=== PATIENT | male | born 1950 | race Caucasian/White ===

== ENCOUNTER 2018-05-26 07:05 | Outpatient (CLI) | payer MEDICARE, BC, SELFPAY ==
[2018-05-26 07:36] LABS: Absolute Basophil Count 0.02 k/cumm (0.0-0.2); Absolute Eosinophil Count 0.11 k/cumm (0.0-0.7); Absolute Lymphocyte Count 1.01 k/cumm (1.2-3.4); Absolute Monocyte Count 0.45 k/cumm (0.11-0.7); Basophils % 0.6; Eosinophils % 3.1; HCT 40.5 % (40.0-50.0); HGB 13.7 g/dL (13.5-17.5); Lymphocytes % 28.1; Mean Corp. HGB Concentration 33.8 g/dL (32.0-36.0); Mean Corpuscular Hemoglobin 32.7 pg (27.0-33.0); Mean Corpuscular Volume 96.7 fL (80-95); Mean Platelet Volume 9.2 fL (8.0-11.0); Monocytes % 12.5; Neutrophils % 55.7; Platelet Count 180 x1000/uL (130-400); RBC 4.19 m/cumm (4.50-6.00); RBC Distribution Width 12.1 % (11.8-14.1); White Blood Cell Count 3.59 k/cumm (4.4-10.8)
[2018-05-26 08:18] LABS: Glucose 102 mg/dL (70-100)
[2018-05-28 03:32] LABS: Testosterone, Total 392 ng/dL (240-950)
== END 2018-05-26 07:25 ==
PROVIDERS: PCP General Practice; Referring Provider Psychiatry & Neurology Psychiatry; Visit Provider General Practice
DX: N52.9 Male erectile dysfunction, unspecified (principal); D64.9 Anemia, unspecified; Z79.899 Other long term (current) drug therapy
CPT/HCPCS: 36415; 82947; 84403; 85025

== ENCOUNTER 2018-06-26 08:57 | Outpatient (CLI) | payer MEDICARE, BC, SELFPAY ==
[2018-06-26 09:12] LABS: Absolute Basophil Count 0.02 k/cumm (0.0-0.2); Absolute Eosinophil Count 0.12 k/cumm (0.0-0.7); Absolute Lymphocyte Count 1.28 k/cumm (1.2-3.4); Absolute Monocyte Count 0.56 k/cumm (0.11-0.7); Absolute Neutrophil Count 2.45 k/cumm (1.2-6.7); Basophils % 0.5; Eosinophils % 2.7; HCT 41.6 % (40.0-50.0); HGB 14.7 g/dL (13.5-17.5); Lymphocytes % 28.9; Mean Corp. HGB Concentration 35.3 g/dL (32.0-36.0); Mean Corpuscular Hemoglobin 33.1 pg (27.0-33.0); Mean Corpuscular Volume 93.7 fL (80-95); Mean Platelet Volume 8.9 fL (8.0-11.0); Monocytes % 12.6; Neutrophils % 55.3; Platelet Count 189 x1000/uL (130-400); RBC 4.44 m/cumm (4.50-6.00); RBC Distribution Width 11.6 % (11.8-14.1); White Blood Cell Count 4.43 k/cumm (4.4-10.8)
== END 2018-06-26 09:17 ==
PROVIDERS: PCP General Practice; Visit Provider Psychiatry & Neurology Psychiatry
DX: D64.9 Anemia, unspecified (principal); Z79.899 Other long term (current) drug therapy
CPT/HCPCS: 36415; 85025

== ENCOUNTER 2018-08-10 12:19 | Outpatient (CLI) | payer MEDICARE, BC, SELFPAY ==
[2018-08-10 12:40] LABS: Absolute Basophil Count 0.03 k/cumm (0.0-0.2); Absolute Lymphocyte Count 1.24 k/cumm (1.2-3.4); Absolute Monocyte Count 0.43 k/cumm (0.11-0.7); Absolute Neutrophil Count 2.86 k/cumm (1.2-6.7); Basophils % 0.6; Eosinophils % 2.1; HGB 14.8 g/dL (13.5-17.5); Lymphocytes % 26.6; Mean Corp. HGB Concentration 35.2 g/dL (32.0-36.0); Mean Corpuscular Hemoglobin 32.8 pg (27.0-33.0); Mean Corpuscular Volume 93.1 fL (80-95); Mean Platelet Volume 9.1 fL (8.0-11.0); Monocytes % 9.2; Neutrophils % 61.5; Platelet Count 196 x1000/uL (130-400); RBC 4.51 m/cumm (4.50-6.00); RBC Distribution Width 11.7 % (11.8-14.1); White Blood Cell Count 4.66 k/cumm (4.4-10.8)
[2018-08-10 12:57] LABS: ALT 32 U/L (12-78); AST 26 U/L (15-37); Alkaline Phosphatase 82 U/L (46-116); Anion Gap 7.2 mmol/L (3-11); BUN 15 mg/dL (7-18); Bilirubin, Total 0.3 mg/dL (0.2-1.0); CO2 29.8 mmol/L (21.0-32.0); CREATININE 1.01 mg/dL (0.70-1.30); Calcium 9.1 mg/dL (8.5-10.1); Chloride 100 mmol/L (98-107); Glucose 103 mg/dL (70-100); Sodium 137 mmol/L (136-145); Total Protein 7.2 g/dL (6.4-8.2)
[2018-08-11 09:56] LABS: CEA 1.6 ng/ml
== END 2018-08-10 12:39 ==
PROVIDERS: PCP General Practice; Visit Provider Internal Medicine Hematology & Oncology
DX: Z85.038 Personal history of other malignant neoplasm of large intestine (principal)
CPT/HCPCS: 36415; 80053; 82378; 85025

== ENCOUNTER 2019-01-04 08:33 | Outpatient (CLI) | payer MEDICARE, BC, SELFPAY ==
[2019-01-04 08:54] LABS: Absolute Basophil Count 0.02 k/cumm (0.0-0.2); Absolute Lymphocyte Count 1.12 k/cumm (1.2-3.4); Absolute Monocyte Count 0.43 k/cumm (0.11-0.7); Basophils % 0.5; Eosinophils % 2.4; HCT 40.4 % (40.0-50.0); Lymphocytes % 26.9; Mean Corp. HGB Concentration 34.7 g/dL (32.0-36.0); Mean Corpuscular Hemoglobin 32.8 pg (27.0-33.0); Mean Corpuscular Volume 94.6 fL (80-95); Mean Platelet Volume 9.4 fL (8.0-11.0); Monocytes % 10.3; Neutrophils % 59.9; Platelet Count 203 x1000/uL (130-400); RBC 4.27 m/cumm (4.50-6.00); RBC Distribution Width 11.7 % (11.8-14.1); White Blood Cell Count 4.17 k/cumm (4.4-10.8)
== END 2019-01-04 08:53 ==
PROVIDERS: PCP General Practice; Visit Provider Psychiatry & Neurology Psychiatry
DX: F31.81 Bipolar II disorder (principal); Z79.899 Other long term (current) drug therapy
CPT/HCPCS: 36415; 85025

== ENCOUNTER 2019-02-17 07:08 | Outpatient (CLI) | payer MEDICARE, BC, SELFPAY ==
[2019-02-17 08:25] LABS: Glucose 101 mg/dL (70-100)
== END 2019-02-17 07:28 ==
PROVIDERS: PCP General Practice; Visit Provider General Practice
DX: R73.03 Prediabetes (principal)
CPT/HCPCS: 36415; 82947

== ENCOUNTER 2019-03-16 20:38 | Emergency (ER) | payer MEDICARE, BC, SELFPAY ==
[2019-03-16 20:46] VITALS: BP 177/78; PULSE 78; RESP 18; TEMP 36.8; O2SAT 98
--- NOTE | 2019-03-16 21:01 | ED.GENADUL_ITS ---
Discharge Plan Disposition Patient Disposition: HOME Condition: Stable Discharge Details Chief Complaint: RashLesion Clinical Impression: Tick bite Primary Care Provider: Carlos A Maurer ED Provider: Sylvester Ashton Home Meds and New Rx's Prescriptions: No Action Fish Oil 300 MG capsule 300 mg PO DAILY RF: 0 lamotrigine [Lamictal] 100 MG tablet 100 mg PO DAILY RF: 0 Discharge Instructions Instructions: Tick Bite (ED) Additional Instructions: if you develop redness that is spreading, a bulls eye appearing rash or severe pain or fevers see your primary care provider or return to the emergency department Medical Decision Making 68 yo male comes in with cc of tick bite. He states he removed a tick from lower back tonight that appears to have been there for at least 2-3 days. HAs mild erythema around it that is not warm, no bulls eye or systemic symptoms. Will tx with one time dose of doxy and advised f/u here or pcp if he has severe pain, spreading redness or fevers Differential Diagnosis tick bite, lyme disease HPI General Mode of arrival: ambulatory . Date/Time Provider Initiated Documentation: 03/16/19 20:42 . Limitations to Documentation: no limitations . Information obtained by: patient . History of Present Illness 68 year old M presents to the emergency department with the chief complaint of tick bite, described as moderate, Quality is described as aching, and is localized to the back. Patient reports no radiation. Patient started experiencing this hour(s) (1) and it has been constant. No relieving factors improve symptom(s), No exacerbating factors reported . Patient notes no other symptoms.. Related Data Home Medications Medication Instructions Recorded Confirmed Fish Oil 300 mg PO DAILY 02/15/16 03/16/19 lamotrigine [Lamictal] 100 mg PO DAILY 01/27/18 03/16/19 Allergies Allergy/AdvReac Type Severity Reaction Status Date / Time No Known Allergies Allergy Unverified 03/16/19 20:49 General Stated Complaint: RashLesion MAURA: 4 Review of Systems Review of Systems All systems reviewed & are unremarkable except as noted in HPI and below Constitutional Denies chills, Denies fever(s) and Denies weakness Cardiovascular Denies chest pain and Denies dyspnea Respiratory Denies cough and Denies dyspnea Gastrointestinal Denies abdominal pain, Denies nausea and Denies vomiting Musculoskeletal Denies joint swelling Neurologic Denies weakness Endocrine Denies heat intolerance PFSH Social History Smoking/Tobacco Use Status: Never Alcohol Intake: current Alcohol Intake frequency: holidays/special occasions only Alcohol type: beer Drug use: Never Do you feel safe at home: Yes Do you feel safe in your relationship?: Yes Exam Const General: no acute distress Orientation: alert HENMT Head: normal to inspection Ears: external ears normal General nose exam: external nose normal Mouth: moist mucous membranes Eyes General: appearance normal, both eyes and all related structures Neck Neck: normal visual inspection Resp Effort & Inspection: normal respiratory effort and able to speak in complete sentences Cardio Rate: regular rate Skin General skin exam: elasticity normal Neuro General: alert and oriented x3 Extrem General: normal to inspection Psych Mental Status: mental status grossly normal Course Vital Signs Temperature 36.8 C 03/16/19 20:46 Pulse 78 03/16/19 20:46 Respiratory Rate 18 03/16/19 20:46 Blood Pressure 177/78 H 03/16/19 20:46 Pulse Oximetry 98 03/16/19 20:46 Temperature 36.8 C 03/16/19 20:46 Temperature Source Skin 03/16/19 20:46 Pulse 78 03/16/19 20:46 Respiratory Rate 18 03/16/19 20:46 Respiratory Effort Non-Labored 03/16/19 20:47 Blood Pressure 177/78 H 03/16/19 20:46 Blood Pressure Position Sitting 03/16/19 20:46 Pulse Oximetry 98 03/16/19 20:46 Oxygen Delivery Method Room Air 03/16/19 20:46 Oxygen Flow Rate 0 03/16/19 20:46 Pain Level 4 03/16/19 20:46
[2019-03-16] MEDS: Doxycycline Hyclate 100 MG CAP 200 MG PO (21:06)
== END 2019-03-16 21:08 | disposition home or self-care (01) ==
LOC: ER 21:03
PROVIDERS: Emergency Provider Emergency Medicine; PCP General Practice
DX: S30.860A Insect bite (nonvenomous) of lower back and pelvis, initial encounter (principal); W57.XXXA Bitten or stung by nonvenomous insect and other nonvenomous arthropods, initial encounter
CPT/HCPCS: 99283

== ENCOUNTER 2019-06-17 07:09 | Outpatient (CLI) | payer MEDICARE, BC, SELFPAY ==
[2019-06-17 07:34] LABS: HCT 40.8 % (40.0-50.0); HGB 14.1 g/dL (13.5-17.5); Mean Corp. HGB Concentration 34.6 g/dL (32.0-36.0); Mean Corpuscular Hemoglobin 32.8 pg (27.0-33.0); Mean Corpuscular Volume 94.9 fL (80-95); Mean Platelet Volume 8.9 fL (8.0-11.0); Platelet Count 230 x1000/uL (130-400); RBC Distribution Width 11.6 % (11.8-14.1); White Blood Cell Count 3.66 k/cumm (4.4-10.8)
[2019-06-17 08:27] LABS: Glucose 106 mg/dL (70-100)
== END 2019-06-17 07:29 ==
PROVIDERS: PCP General Practice; Visit Provider General Practice
DX: D72.819 Decreased white blood cell count, unspecified (principal); R73.03 Prediabetes
CPT/HCPCS: 36415; 82947; 85027

== ENCOUNTER 2019-07-05 12:56 | Emergency (ER) | payer MEDICARE, BC, SELFPAY ==
[2019-07-05] VITALS (17 sets, daily range): BP systolic 144–175; BP diastolic 73–82; PULSE 66–84; RESP 9–17; TEMP 36.9; O2SAT 95–97
--- NOTE | 2019-07-05 13:17 | DI.RAD_ITS ---
EXAM: XR KNEE RT 3V AP,LAT,ELA INDICATION: Accidental fall with the impact. COMPARISON: No exams were available for comparison TECHNIQUE: 2D digital imaging was performed. FINDINGS: No acute fracture or dislocation is present. There is an enthesophyte at the superior aspect of the patella. Atherosclerosis. No radiopaque foreign bodies are seen in the soft tissues. IMPRESSION: No acute fracture or dislocation.
--- NOTE | 2019-07-05 13:20 | ED.GENADUL_ITS ---
Discharge Plan Disposition Patient Disposition: HOME Condition: Stable Discharge Details Chief Complaint: Trauma Clinical Impression: C4 cervical fracture Primary Care Provider: Carlos A Maurer ED Provider: Tate Barbosa Home Meds and New Rx's Prescriptions: No Action Fish Oil 300 MG capsule 300 mg PO DAILY RF: 0 lamotrigine [Lamictal] 100 MG tablet 300 mg PO HS RF: 0 penicillin V potassium 500 mg Tablet 500 mg PO RF: 0 Discharge Instructions Additional Instructions: 1. Drink plenty of fluids. 2. Continue all medications as prescribed. 3. Acetaminophen 1000mg every 4 hours (up to 5 time a day) and/or ibuprofen 600mg every 6 hours as needed for fever or pain. 4. Wear cervical collar until follow-up with Dr. Gurrola at [facility] in 10 to 14 days. 5. Minimize activity which will risk making her fracture unstable or slow healing. This includes: a. No heavy lifting b. No lifting arms overhead. c. No driving or other activities which require neck rotation. d. Careful walking to avoid accidental falls. Avoid uneven or slippery surfaces. Return to the Emergency Department (ED) if your condition worsens, does not improve as expected, or for ANY other concerns. Specifically, return if you have new or uncontrolled pain, worsening fever, difficulty breathing, vomiting, or are unable to drink fluids. Referrals: Callum Gurrola [ NON-RESEARCH [facility] STAFF PHYSICIAN] - Medical Decision Making 69-year-old gentleman who presents with head, neck, and right knee injuries associate with a fall from a standing truck. Mr. Yip describes accidentally falling from the truck bed with impact to his head and lateral right knee. He drove himself to the hospital for evaluation. On arrival, he had headache, and endorses worsening neck pain, and had lateral right knee pain. Clinical exam otherwise unremarkable. Knee x-ray negative. Head CT negative. Cervical spine CT diagnostic for isolated bilateral C4 lamina fractures with minimal displacement. Patient was changed from a cervical collar to [place] collar pending review of images and management with academic support specialist at [facility]. Discussed case with academic support specialist at [facility] (Dr. Callum Gurrola's office). Patient cleared for discharge home in a [place] collar with a plan for outpatient follow-up at [facility] in 10 to 14 days. Reviewed diagnostic findings and management strategy with karly figueroa and family. Patient discharged with a [place] collar and strict instructions to avoid activity which will increase likelihood of bony instability or retard healing. Given usual and customary return instructions at the time of discharge. Medical Records Medical records reviewed: Yes I reviewed the patient's medical records. Imaging Data Radiologic Study: Imaging: CT Scan (Head and cervical spine) My impression: No intracranial injury. Minimally displaced fractures of lamina bilaterally at C4. Images reviewed independently and contemporaneously by myself. Findings discussed with radiology. Radiologist's impression: Same Radiologic Study #2: Attestation: I personally reviewed and interpreted this imaging study as follows: Imaging: X-Ray (Right knee) My impression: No acute fracture or dislocation. Images reviewed independently and contemporaries by myself. Findings discussed with radiologist. Radiologist's impression: Same HPI 69-year-old gentleman with an unremarkable past medical history. Control himself here after falling from a semitruck with impact to his head and right knee. He denies LOC but notes that he was briefly altered and delayed and standing up. In route to the hospital he noted progressive neck pain. He also has pain to the lateral aspect of his right knee but otherwise had no difficulty with gait or weightbearing. He has a low-grade headache, neck pain more pronounced on his right side, and knee pain. He otherwise denies any other constitutional complaints including no chest pain, dyspnea, abdominal pain or other extremity injury. He has had no change in vision or hearing. He denies any focal extremity weakness. General Date/Time Provider Initiated Documentation: 07/05/19 13:17 . Related Data Home Medications Medication Instructions Recorded Confirmed Fish Oil 300 mg PO DAILY 02/15/16 07/05/19 lamotrigine [Lamictal] 300 mg PO HS 01/27/18 07/05/19 penicillin V potassium 500 mg PO 07/05/19 Allergies Allergy/AdvReac Type Severity Reaction Status Date / Time No Known Allergies Allergy Unverified 07/05/19 13:06 General Stated Complaint: Trauma MAURA: 3 Review of Systems All systems reviewed & are unremarkable except as noted in HPI and below PFSH Social History Smoking/Tobacco Use Status: Never Alcohol Intake: current Alcohol Intake frequency: holidays/special occasions only Alcohol type: beer Drug use: Never Do you feel safe at home: Yes Do you feel safe in your relationship?: Yes Exam Narrative Exam Narrative: Nursing note and vital signs have been reviewed and noted. GENERAL: alert, active, no acute distress, well -hydrated, well-nourished HEENT: normocephalic, PERRLA, EOMI, conjunctiva clear, external ears/canals normal, nasal mucosa normal; multiple superficial lacerations on the right vertex NECK: Midline tenderness C3-C5 with no ecchymosis, step-off, or soft tissue injury appreciated. Bilateral paraspinal tenderness. CARDIOVASCULAR: RRR, no murmurs, nl pulses, no edema PULMONARY: nl effort, no audible wheezing or stridor, nl breath sounds with no focal deficit. no chest wall tenderness ABDOMEN: soft, non-tender, non-distended, no mass, no organomegaly EXTREMITY: normal muscle tone, all extremities are normal except for the right knee which has a lateral abrasion. No laxity tenderness or pain with valgus and varus deformity. Negative anterior drawer normal neurovascular exam distally normal patella by ballottement negative straight leg raise. SKIN: no exanthem appreciated NEURO: gross motor exam normal, normal stance and gait PSYCH: alert and oriented, Course Vital Signs Vital signs: Vital Signs Temperature 98.4 F 07/05/19 13:01 Pulse 75 07/05/19 13:01 Respiratory Rate 16 07/05/19 13:01 Blood Pressure 175/76 H 07/05/19 13:01 Temperature 98.4 F 07/05/19 13:01 Temperature Source Temporal Artery Scan 07/05/19 13:01 Pulse 75 07/05/19 13:01 Respiratory Rate 16 07/05/19 13:01 Blood Pressure 175/76 H 07/05/19 13:01 Oxygen Delivery Method Room Air 07/05/19 13:01 Oxygen Flow Rate 0 07/05/19 13:01 Pain Level 10 07/05/19 13:01
--- NOTE | 2019-07-05 13:25 | DI.CT_ITS ---
EXAM: CT HEAD AND CERVICAL SPINE WO CLINICAL HISTORY: Accidental fall with injury to head/neck COMPARISON: No exams were available for comparison FINDINGS: CT BRAIN: There is artifact from the patient's dental amalgam. The ventricles and sulci are consistent with th e patient's age. No acute intracranial hemorrhage, midline shift or mass effect is identified. The ventricles are intact. The basilar cisterns are patent. There is mild mucosal thickening in the rig ht maxillary sinus. The remaining visualized paranasal sinuses are clear. No air-fluid levels are p resent. The mastoid air cells are well pneumatized. The calvarium is intact. CT CERVICAL SPINE: There is a fracture involving both the right and left laminae of the C4 vertebra. There is 1-2 mm of distraction of the fracture noted. The fracture does not involve the pedicle or the transverse proc esses. The vertebral body is intact. No other fractures or subluxations are seen. The odontoid is intact. The lateral masses are well aligned. Mild to moderate degenerative changes are present thro ughout the cervical spine. No significant central spinal canal stenosis is seen at this level. The prevertebral soft tissues ar e unremarkable. No spinal cord compression is noted. The lung apices are clear. IMPRESSION: 1. No acute intracranial process. 2. Minimally displaced fracture involving both the right and left laminae of C4. 3. The findings were discussed with the Emergency Department at 2:05 p.m. on 07/05/2019.
--- NOTE | 2019-07-05 14:17 | NUR.NOTE ---
ER MD removed the stiff neck and relplaced it with a [place] collar with assist of 2 nurses. pt is aware of consult via phone with [facility] . he has attempted to call his daughter Venessa . he does not want to call his at thhis time .Nursing Note:
== END 2019-07-05 15:45 | disposition home or self-care (01) ==
PROVIDERS: Emergency Provider Emergency Medicine; PCP General Practice
DX: S12.390A Other displaced fracture of fourth cervical vertebra, initial encounter for closed fracture (principal); R51 Headache; M25.562 Pain in left knee; V68.4XXA Person boarding or alighting a heavy transport vehicle injured in noncollision transport accident, initial encounter
CPT/HCPCS: 36415; 73562; 99284; L0172; 70450; 72125

== ENCOUNTER 2019-09-23 08:44 | Outpatient (CLI) | payer MEDICARE, BC, SELFPAY ==
[2019-09-23 09:15] LABS: Abs Immature Grans 0.01 k/cumm (0.0-0.09); Absolute Basophil Count 0.02 k/cumm (0.0-0.2); Absolute Eosinophil Count 0.16 k/cumm (0.0-0.7); Absolute Lymphocyte Count 1.38 k/cumm (1.2-3.4); Absolute Monocyte Count 0.58 k/cumm (0.11-0.7); Absolute Neutrophil Count 2.67 k/cumm (1.2-6.7); Basophils % 0.4; Eosinophils % 3.3; HCT 41.5 % (40.0-50.0); HGB 14.5 g/dL (13.5-17.5); Immature Grans % 0.2 %; Lymphocytes % 28.6; Mean Corp. HGB Concentration 34.9 g/dL (32.0-36.0); Mean Corpuscular Hemoglobin 32.4 pg (27.0-33.0); Mean Corpuscular Volume 92.6 fL (80-95); Mean Platelet Volume 9.2 fL (8.0-11.0); Neutrophils % 55.5; Platelet Count 237 x1000/uL (130-400); RBC 4.48 m/cumm (4.50-6.00); White Blood Cell Count 4.82 k/cumm (4.4-10.8)
[2019-09-24 15:31] LABS: ALT 28 U/L (16-63); AST 28 U/L (15-37); Albumin 4.1 g/dL (3.4-5.0); Alkaline Phosphatase 79 U/L (46-116); Anion Gap 7.9 mmol/L (3-11); BUN 17 mg/dL (7-18); Bilirubin, Total 0.5 mg/dL (0.2-1.0); CO2 28.1 mmol/L (21.0-32.0); CREATININE 1.06 mg/dL (0.70-1.30); Calcium 8.8 mg/dL (8.5-10.1); Chloride 103 mmol/L (98-107); Glucose 100 mg/dL (74-106); Potassium 4.4 mmol/L (3.5-5.1); Sodium 139 mmol/L (136-145); Total Protein 6.8 g/dL (6.4-8.2)
[2019-09-27 10:28] LABS: CEA 2.3 ng/mL (See Note)
== END 2019-09-23 09:04 ==
PROVIDERS: Internal Medicine Hematology & Oncology; PCP Family Medicine; Visit Provider Nurse Practitioner Family
DX: C18.7 Malignant neoplasm of sigmoid colon (principal)
CPT/HCPCS: 36415; 80053; 82378; 85025

== ENCOUNTER 2020-03-02 04:09 | Emergency (ER) | payer MEDICARE, BC, SELFPAY ==
[2020-03-02] VITALS (7 sets, daily range): BP systolic 115–156; BP diastolic 60–85; PULSE 66–99; RESP 12–17; TEMP 36.6; O2SAT 94–97
--- NOTE | 2020-03-02 04:00 | RT.EKG_ITS ---
APPROVED REPORT Exam: Resting ECG Patient Location: E HR:76 bpm ECG Measurements Heart Rate 76 AXIS OH 195 P 34 QRSd 90 QRS 32 QT 387 T 56 QTc 436 <Conclusion> Sinus rhythm...normal P axis, V-rate 60- 99 no acute ischemic findings
--- NOTE | 2020-03-02 04:19 | ED.GENADUL_ITS ---
Discharge Plan Disposition Patient Disposition: HOME Condition: Stable Discharge Details Chief Complaint: Chest Pain Clinical Impression: Chest pain, Vertigo Primary Care Provider: Warner Quinn ED Provider: Sylvester Ashton Home Meds and New Rx's Prescriptions: New meclizine 25 mg tablet 25 mg PO TID PRN (Reason: dizziness) Qty: 30 RF: 0 Continued lamotrigine [Lamictal] 100 MG tablet 300 mg PO HS RF: 0 Discharge Instructions Instructions: Vertigo (ED) Additional Instructions: follow up with your primary care provider within 1 week return to the emergency department if you feel more ill, have fevers, difficulty breathing Medical Decision Making 69 yo male with hx of depression on lamictal with no smoking or cardiac history comes in with ems after he states he woke up with burning in his chest and felt dizzy. Denies n/v, diaphoresis or radiation of the pain. HE was given asa with EMS and arrives stating he has no burning on my exam and is just tired. He denies fevers, cough, dyspnea and on exam is in no distress speaking in full sentences with clear lungs, no murmurs, no leg swelling and no jvd. Suspect gerd less likely nstemi. Heart score is 3, will obtain troponin. No tearing back pain and normal vascular exam so doubt dissection. wells is moderate given PE j ust as likely as other diagnoses so will obtain CTA and monitor labs and CTA unremarkable. Remains HD stable. He is sleeping on reassessment and when awoken states he feels tired and unsteady. When I get the patient up he has an unsteady gait and does have ataxia on finger to nose testing. I suspect he could have vertigo, given last known normal was when he went to bed at 10pm not a lytic candidate if this was a stroke, will obtain ct head and give meclizine and monitor pt feels better, ct negative for acute pathology. He is more steady on his feet. I did recommend admission given unclear etiology of his dizziness but he declines and requests d/c. He has capcaity to make his own decisions and understands risks of leaving including falling and less likely and disability but is willing to accept these risks. He hasa cane at home. Will d/c with meclizine and advised f/u with pcp and return precautions given Differential Diagnosis Differential Diagnosis: nstemi, gerd, PE Medical Records Medical records reviewed: Yes I reviewed the patient's medical records. Imaging Data Radiologic Study: Attestation: I personally reviewed and interpreted this imaging study as follows: Imaging: CT Scan Radiologist's impression: no acute findings on CT of the chest Radiologic Study #2: Attestation: I personally reviewed and interpreted this imaging study as follows: Imaging: CT Scan Radiologist's impression: IMPRESSION: 1. No acute intracranial findings. No changes compared to 07/05/2019 Lab Data Lab results reviewed: Yes I reviewed the patient's lab results. ECG Data Attestation: I personally reviewed and interpreted this ECG (s) as follows: Prior ECG tracings: not available for review Interpretation: sinus rhythm, rate of 76, pr 195, no acute ischemic findiings HPI General Mode of arrival: EMS . Date/Time Provider Initiated Documentation: 03/02/20 04:09 . Limitations to Documentation: no limitations . Information obtained by: patient . History of Present Illness 69 year old M presents to the emergency department with the chief complaint of dizziness, described as moderate, Patient started experiencing this hour(s) (3) and it has been intermittent. No relieving factors improve symptom(s), No exacerbating factors reported . Patient did receive the following treatments prior to arrival, none Related Data Home Medications Medication Instructions Recorded Confirmed lamotrigine [Lamictal] 300 mg PO HS 01/27/18 03/02/20 meclizine 25 mg PO TID PRN #30 tab 03/02/20 Previous Rx's Medication Instructions Recorded meclizine 25 mg PO TID PRN #30 tab 03/02/20 Allergies Allergy/AdvReac Type Severity Reaction Status Date / Time No Known Allergies Allergy Unverified 07/05/19 13:06 General Stated Complaint: Chest Pain MAURA: 2 Review of Systems All systems reviewed & are unremarkable except as noted in HPI and below Constitutional Constitutional: Denies chills, Denies fever(s) and Denies weakness Eyes Eyes: Denies loss of vision ENT Ears, Nose, Mouth, and Throat: Denies change in voice Cardiovascular Cardiovascular: Denies dyspnea Respiratory Respiratory: Denies cough and Denies dyspnea Gastrointestinal Gastrointestinal: Denies abdominal pain, Denies nausea and Denies vomiting Genitourinary Genitourinary: Denies dysuria Musculoskeletal Musculoskeletal: Denies joint swelling Integumentary/Breasts Skin/Breast: Denies rash Neurologic Neurologic: Denies loss of vision and Denies weakness [facility] Medical History (Updated 03/02/20 @ 06:02 by Sylvester Ashton MD) Colon cancer (Chronic) Social History Smoking/Tobacco Use Status: Never Alcohol Intake: current Alcohol Intake frequency: holidays/special occasions only Alcohol type: beer Drug use: Never Substance use type: does not use Do you feel safe at home: Yes Do you feel safe in your relationship?: Yes Exam Const General: no acute distress Orientation: alert HENMT Head: normal to inspection Ears: external ears normal General nose exam: external nose normal Mouth: moist mucous membranes Eyes General: appearance normal, both eyes and all related structures Neck Neck: normal visual inspection Resp Effort & Inspection: normal respiratory effort and able to speak in complete sentences Cardio Rate: regular rate GI Palpation: soft Skin General skin exam: no rashes or lesions noted Neuro General: patient alert and patient oriented x3 Extrem General: normal to inspection Psych Mental Status: mental status grossly normal Course Vital Signs Vital signs: Vital Signs Temperature 36.6 C 03/02/20 04:11 Pulse 99 H 03/02/20 04:11 Respiratory Rate 16 03/02/20 04:11 Blood Pressure 156/85 H 03/02/20 04:11 Pulse Oximetry 94 L 03/02/20 04:11 Temperature 36.6 C 03/02/20 04:11 Temperature Source Temporal Artery Scan 03/02/20 04:11 Pulse 99 H 03/02/20 04:11 Respiratory Rate 16 03/02/20 04:11 Blood Pressure 156/85 H 03/02/20 04:11 Blood Pressure Position Supine 03/02/20 04:11 Pulse Oximetry 94 L 03/02/20 04:11 Oxygen Delivery Method Room Air 03/02/20 04:11 Oxygen Flow Rate 0 03/02/20 04:11
[2020-03-02 04:23] LABS: Abs Immature Grans 0.01 k/cumm (0.0-0.09); Absolute Basophil Count 0.02 k/cumm (0.0-0.2); Absolute Eosinophil Count 0.17 k/cumm (0.0-0.7); Absolute Monocyte Count 0.62 k/cumm (0.11-0.7); Absolute Neutrophil Count 2.26 k/cumm (1.2-6.7); Basophils % 0.4; Eosinophils % 3.6; HCT 40.8 % (40.0-50.0); HGB 14.1 g/dL (13.5-17.5); Immature Grans % 0.2 %; Lymphocytes % 35.6; Mean Corp. HGB Concentration 34.6 g/dL (32.0-36.0); Mean Corpuscular Hemoglobin 32.5 pg (27.0-33.0); Mean Platelet Volume 9.3 fL (8.0-11.0); Neutrophils % 47.2; Platelet Count 225 x1000/uL (130-400); RBC 4.34 m/cumm (4.50-6.00); RBC Distribution Width 11.8 % (11.8-14.1); White Blood Cell Count 4.78 k/cumm (4.4-10.8)
[2020-03-02 04:37] LABS: PTT Activated 20.7 sec (21.0-31.4); Prothrombin Time 9.8 sec (9.3-11.0)
[2020-03-02 04:42] LABS: ALT 35 U/L (16-63); AST 34 U/L (15-37); Albumin 3.6 g/dL (3.4-5.0); Alkaline Phosphatase 91 U/L (46-116); Anion Gap 8.4 mmol/L (3-11); BUN 17 mg/dL (7-18); Bilirubin, Total 0.2 mg/dL (0.2-1.0); CO2 29.6 mmol/L (21.0-32.0); CREATININE 1.17 mg/dL (0.70-1.30); Calcium 8.9 mg/dL (8.5-10.1); Chloride 101 mmol/L (98-107); Glucose 163 mg/dL (74-106); Potassium 3.8 mmol/L (3.5-5.1); Sodium 139 mmol/L (136-145)
--- NOTE | 2020-03-02 04:45 | DI.CT_ITS ---
EXAM: CT CHEST PE CTA CLINICAL HISTORY: chest pain. TECHNIQUE: Imaging Protocol: Axial CT angiography was performed with multi-slice acquisition and mu lti-planar and/or 3D reconstructions. CONTRAST MATERIAL: Intravenous: Omnipaque 350 Contrast volume:70 cc COMPARISON: No exams were available for comparison FINDINGS: There is no evidence of pulmonary emboli or aortic dissection. No pleural or pericardial effusions a re seen. There is no evidence of mass or adenopathy. Degenerative changes are seen in the spine. C oronary artery calcifications are seen. The heart is mildly enlarged. There the aorta is mildly tor tuous and shows mild calcification but is normal in diameter. Dependent changes are seen in the lung s. There is mild atelectasis at both lung bases. The visualized portions of the upper abdomen are u nremarkable. IMPRESSION: No evidence of pulmonary embolism or other acute abnormality. RADIATION DOSE DELIVERED: Total DLP DATA REPOSITORY: All CT scans at this facility are submitted to the National Radiology Data Registry (NRDR) Dose Index Registry (DIR) with the [employer] (A[employer]). RADIATION OPTIMIZATION: All CT scans at this facility use at least one of these dose optimization te chniques: automated exposure control; mA and/or kV adjustment per patient size (includes targeted exa ms where dose is matched to clinical indication); or iterative reconstruction.
[2020-03-02 04:48] LABS: Lipase 74 U/L (73-393)
[2020-03-02 04:53] LABS: Troponin I < 0.05 ng/mL (<0.06)
[2020-03-02] MEDS: Normal Saline Flush 10 ML SYR IVP (05:04)
[2020-03-02] MEDS: Omnipaque 350 MG/ML 100 ML BTL IJ (05:06)
[2020-03-02] MEDS: Normal Saline 20 ML VIAL IV ×2 (05:06→05:07)
--- NOTE | 2020-03-02 05:11 | DI.VRAD_ITS ---
PROCEDURE INFORMATION: Exam: CT Angiography Chest With Contrast Exam date and time: 03/02/2020 4:20 AM Age: 69 years old Clinical indication: Chest pain TECHNIQUE: Imaging protocol: Computed tomographic angiography of the chest with intravenous contrast. 3D rendering: MIP and/or 3D reconstructed images were created by the technologist. Radiation optimization: All CT scans at this facility use at least one of these dose optimization techniques: automated exposure control; mA and/or kV adjustment per patient size (includes targeted exams where dose is matched to clinical indication); or iterative reconstruction. Contrast material: [id number]`; Contrast volume: 70 ml; Contrast route: INTRAVENOUS (IV); COMPARISON: No relevant prior studies available. FINDINGS: Pulmonary arteries: No evidence of pulmonary embolism. Aorta: Normal caliber thoracic aorta without dissection or aneurysm. Lungs: No alveolar infiltrate. Bilateral lower lobe linear parenchymal scarring or subsegmental collapse / atelectasis. Pleural space: No pleural fluid collection. No pneumothorax. Heart: No right ventricular strain. No pericardial effusion. Lymph nodes: Unremarkable. No enlarged lymph nodes. Bones/joints: Spinal degenerative changes. Soft tissues: Unremarkable. IMPRESSION: 1. No evidence of pulmonary embolism. 2. No alveolar infiltrate. 3. Bilateral lower lobe linear parenchymal scarring or subsegmental collapse / atelectasis. 4. Normal caliber thoracic aorta without dissection or aneurysm. Dictated and Authenticated by: Lencho Weeks MD. Ordering:NASIR Phan MD
--- NOTE | 2020-03-02 05:34 | DI.CT_ITS ---
EXAM: CT HEAD WO CLINICAL HISTORY: dizziness. TECHNIQUE: Imaging Protocol: Axial computed tomography images with coronal and sagittal reformatted images were created and reviewed COMPARISON: CT CT HEAD CERVICAL SPINE WO from 07/05/[address] CHEST PE CTA from 03/02/2020 FINDINGS: There is contrast seen within the vascular structures related to previous CT of the chest. Ventricles and Extra axial spaces: Normal in size and morphology for the patient's age. Hemorrhage: None. Cerebral parenchyma: Mild white matter changes of small vessel disease. Midline shift: None. Brainstem/Cerebellum: Normal. Calvarium: Normal. Visualized Paranasal sinuses/Mastoids: Clear. Soft Tissues: Unremarkable. IMPRESSION: No acute intracranial process. RADIATION DOSE DELIVERED: Total DLP DATA REPOSITORY: All CT scans at this facility are submitted to the National Radiology Data Registry (NRDR) Dose Index Registry (DIR) with the [employer] (ACR). RADIATION OPTIMIZATION: All CT scans at this facility use at least one of these dose optimization te chniques: automated exposure control; mA and/or kV adjustment per patient size (includes targeted exa ms where dose is matched to clinical indication); or iterative reconstruction.
[2020-03-02] MEDS: Meclizine 25 MG TAB PO (05:50)
--- NOTE | 2020-03-02 05:54 | DI.VRAD_ITS ---
PROCEDURE INFORMATION: Exam: CT Head Without Contrast Exam date and time: 03/02/2020 5:23 AM Age: 69 years old Clinical indication: Dizziness TECHNIQUE: Imaging protocol: Computed tomography of the head without contrast. Radiation optimization: All CT scans at this facility use at least one of these dose optimization techniques: automated exposure control; mA and/or kV adjustment per patient size (includes targeted exams where dose is matched to clinical indication); or iterative reconstruction. Other technique: STROKE PROTOCOL was implemented. COMPARISON: CT HEAD CERVICAL SPINE WO 07/05/2019 1:32 PM FINDINGS: Brain: A few scattered small areas of decreased density in the periventricular white matter which are likely secondary to chronic ischemia from microvascular change. No acute intracranial hemorrhage. Diffuse cerebral atrophy. Ventricles: Ventricular prominence in this patient with diffuse cerebral atrophy. Bones/joints: Unremarkable. No acute fracture. Sinuses: No significant disease of the paranasal sinuses. Mastoid air cells: No mastoiditis. Vasculature: Arterial calcification. Circulating intravascular contrast in this patient with recent CTA chest performed earlier on 03/02/2020. Soft tissues: Unremarkable. IMPRESSION: 1. No acute intracranial findings. No changes compared to 07/05/2019. 2. Circulating intravascular contrast in this patient with recent CTA chest performed earlier on 03/02/2020. 3. ASPECTS (Cally Stroke Program Early CT Score) is 10. Dictated and Authenticated by: Lencho Weeks MD. Ordering:NASIR Phan MD
== END 2020-03-02 06:20 | disposition home or self-care (01) ==
LOC: ER 06:10
PROVIDERS: Emergency Provider Emergency Medicine; PCP Nurse Practitioner
DX: R07.89 Other chest pain (principal); R42 Dizziness and giddiness
CPT/HCPCS: 36415; 71275; 80053; 83690; 93005; 99285; 70450; 84484; 85025; 85610; 85730; 93010; J3490

== ENCOUNTER 2021-07-23 01:03 | Outpatient (CLI) | payer MEDICARE, BC, SELFPAY ==
--- OUTSIDE RECORDS SUMMARY | 2021-07-23 01:05 | XMS_ITS | Encounter Summary ---
:1950 Author Care Team Providers Name Role Phone Carlos A Maurer Primary Care Provider [phone] [facility] Medical Records Primary Care Provider [phone] Reason for Visit None recorded. Assessment and Plan 1. Obstructive sleep apnea syndr ome SHERINE with an AHI of 15.6/hr. He had been using CPAP 8-14 cm until he learned of the recall about two months ago. He was doing well with it prior to stopping. Since discontinuing his sleep is a little more fragmented/restless. He does not want to use it because he has had colon cancer and is anxious about the risk of cancer with recall. He is eligible for a new CPAP so I have ordered one to day. He is made aware he will need to me et insurance compliance requirements again and I reviewed those with him. He is encouraged to keep up with the rou nhung maintenance of the machine and to clean and replace parts as indicated. He was made aware of the recall and advi sed to register his machine with [employer]. I explained the exact risks of continuing to use the machine are unknown at this time and the decision to continue is up to him. He is reminded there are potent ial risks of not using CPAP as well. He will not use until he gets a new CPAP. I will see him back in three months. He is asked to call the clinic for any sleep related questions or concerns. I provided greater than 30 minutes in e care of this patient, more than half the time was spent in [id number] counseling. ? CPAP machine Discussion Note: None recorded.Patient educational handouts: No information available. Plan of Care Reminders Provider Appointments Office 08/28/2021 Siddharth Saenz, 8:00AM JINGLE WRITER Lab None ? ? recorded. Referral None ? ? recorded. Procedures None ? ? recorded. Surgeries None ? ? recorded. Imaging None ? ? recorded. Medications Name Start Date ? ? Lamictal XR 300 mg tablet,extended release ? Take 1 tablet every day by oral route at bedtime. Medications Administered None recorded. Vitals Height Weight BMI Blood Pressure 5 ft 8 in 168.5 lbs 25.6 kg/m2 139/80 mm[Hg] Results Lab Results None recorded. Allergies Code Code System Name Reaction Severity Onset NKDA ? ? ? Problems Name Status Onset Date Source ? Malignant Tumor of Colon Active 01/01/2019 ? Vitamin D Deficiency Active 01/01/2019 ? Neutropenia Active 01/01/2019 ? Chronic Anxiety Active 01/01/2019 ? Depressive Disorder Active 01/01/2019 ? Hypertensive Disorder Active 01/01/2019 ? History of Male Erectile Disorder Active 01/01/2019 ? Neurocognitive Disorder Active 01/01/2019 ? Hypersomnia Active ? History Obstructive Sleep Apnea Syndrome Active ? History Periodic Limb Movement Disorder Active ? History Restless Legs Active ? History Joint Pain Active ? History Drowsy Active ? History Nervous System Symptoms Active ? History Snoring Active ? History Procedures Date Name Performed by ? 03/25/2003 Colectomy Information not Notes: Partial; subsequent chemother apy--11/2002-10/2003[place] [place] Vaccine List None recorded. Social History Tobacco Smoking Status Never Smoker What is your level of alcohol None consumption? Live alone or with others? alone Are you currently employed? Y Do you have any pets? N Are you blind or do you have Y difficulty seeing? Are you deaf or do you have serious N difficulty hearing? What was the date of your most 01/05/2019 recent tobacco screening? Hard of hearing or deaf in one or Y Note s: supposed to wear both ears? hearing aids What is your level of caffeine Notes: 3-4 cups coffee daily consumption? Functional Status Are you blind or do you Yes have difficulty seeing?? Past Encounters 05/17/2021 Obstructive Sleep Apnea Syndrome Zulay Saenz JINGLE WRITER: [address] [place] [phone], Ph. History of Present Illness Note: <p>Christopher Yip comes in for SHERINE follow-up.</p><p>
</p><p>Christopher was last seen by me on 01/05/19. PSG 11/12/15 (BMI 26.45) AHI 15.6/hr, 02 avtar 82%. PLMi 32. 1/hr, PLMai 2.1/hr. Titration 05/11/16 (BMI 26.61), PLMi 57/hr, PLMai 3.2/hr. CPAP 10-14 cm recommended but he did not tolerate the increased pressures. At his last visit he was using CPAP 8-14 cm with good compliance and reduction in AHI.</p><p>
</p><p>Christopher tells me he was using his CPAP regularly until he learned about the recall two months ago. When he was using CPA Phe had a very dry mouth despite humidity at highest setting. He uses a full face mask and tolerates this well. He has not been using it since the end of February. Since stopping CPAP he has not noticed any significant worsening of his sleep quality. He is not sure if he is snoring. </p><p>He gets to bed between 8 pm- 12 am depending on if he falls asleep on the couch. He wakes up 1-2/nightand gets back to sleep easily. He gets up between 3-5 am to start his days. He is napping only rarely. He says he generally feels well rested. He denies night sweats but has rare nocturnal heartburn and morning headaches. The CPAP air pressure feels fine.</p><p>
</p><p>ESS today 04/17</p><p>
</p><p>COMPLIANCE DATA REVIEWED WITH PATIENT:</p>{{02/19/21-03/20/21# DATES}}, Used {{27# 25 30}}/30 days, average use {{6# 5 6}} hours {{11# number}} minutes a night, mean pressure {{8.8# 8 9}}cm, 90 th percentile pressure {{10.6# 9 10}}cm, time in large air leak {{1# 5 10}} minute, AHI {{3.9# 1 2}}/hour.<p></p><p& gt;</p>Review of Systems: ROS as noted in the HPI Review of Systems None recorded. Physical Exam ? Notes: General: A&O, well groomed { {over weight obese morbidly obese normal weight * thin}}.

HE AD: normocephalic & atraumatic.

EYES: non icteric.

LUNGS: CT A all cervantes. Good air movement.

CARDIO: RRR without murmur, gallop o r thrill.

NEURO: A&O. Normal gait.

PSYCH: Normal m ood and affect.

CUTANEOUS: no overt lesions or rashes
--- OUTSIDE RECORDS SUMMARY | 2021-07-23 01:05 | XMS_ITS ---
:1950 Author Care Team Providers Name Role Phone GAGANDEEP XOCHITL Primary Care Provider [phone] [facility] MEDICAL RECORDS Primary Care Provider [phone] Allergies Code Code System Name Reaction Severity Status Onset NKDA ? Medications Name Status Start Date Stop Date ? ? Lamictal XR 300 mg tablet,extended release Active ? Not available Take 1 tablet every day by oral route at bedtime. Problems Name Status Onset Date Source ? [...] Colectomy Information not Notes: Partial; [place] [place] Lab Results None recorded. Past Encounters 05/17/2021 Obstructive Sleep Apnea Syndrome Zulay Saenz STRINGED INSTRUMENT TUNER: [address] [place] [phone], Ph. Social History Tobacco Smoking Status Never Smoker Vaccine List None recorded. Plan of Care Reminders Provider Appointments None ? ? recorded. Lab None ? ? recorded. Referral None ? ? recorded. Procedures None ? ? recorded. Surgeries None ? ? recorded. Imaging None ? ? recorded. Vitals 05/17/2021 08:00AM Office 30 Height Weight BMI Blood Pressure 172.72 cm 76.43 kg 25.6 kg/m2 139/80 mm[Hg] 01/05/2019 10:45AM Office 30 Height Weight BMI Blood Pressure 172.72 cm 78.93 kg 26.5 kg/m2 140/82 mm[Hg] 08/07/2017 Height Weight Blood Pressure 172.72 cm 80.29 kg 128/74 mm[Hg] 09/03/2016 Height Weight Blood Pressure 172.72 cm 80.29 kg 117/72 mm[Hg] 07/09/2016 Height Weight Blood Pressure 172.72 cm 80.46 kg 118/78 mm[Hg] 05/28/2016 Height Weight Blood Pressure 172.72 cm 83.09 kg 124/68 mm[Hg] 12/12/2015 Height Weight Blood Pressure 172.72 cm 79.38 kg 136/80 mm[Hg] 10/31/2015 Height Weight Blood Pressure 172.72 cm 79.12 kg 120/70 mm[Hg]
--- NOTE | 2021-07-23 08:00 | ETT_ITS ---
APPROVED REPORT Exam: Exercise Treadmill Patient Location: Out-Patient Room/Bed: Stress Nurse: Caro Mota RN Ordering Provider:BILL SAINZ, Contact Number: [phone] BMI: 25.38 Baseline Rhythm: First Degree AV Block, Sinus Rhythm Indications: CHEST PAIN Medical History Medical History: Anxiety, Depression, Bipolar disorder, HTN, SHERINE, Vertigo Cardiac Medications: None Allergies: No known drug allergies Cardiac Risk Factors: FHX of CAD, HTN Previous Cardiac Procedures: None Pretest Chest Pain Characteristics: No chest pain Exercise History: Physically active Physical Disabilities: None Lung Sounds: Clear to auscultation Heart Sounds: Regular Stress Test Details Test: Exercise stress testing was performed using a Georges protocol. Rest Stress HR Resting HR Supine: 59 bpm Max Heart Rate (APMHR): 147 bpm Resting HR Standin bpm Target HR (85% APMHR): 124 bpm Max HR Achieved: 154 bpm % of APMHR: 104 Recovery HR: 74 bpm HR response to stress: Normal HR response to stress BP Resting BP Supine: 150/78 mmHg Resting BP Standin/76 mmHg Max BP: 174/80 mmHg Recovery BP: 146/78 mmHg BP response to stress: Normal blood pressure response to stress. ECG Resting ECst degree AV block, Sinus Bradycardia Ectopy: None Stress ECG: Sinus Tachycardia ST Change: Horizontal, Upsloping ST depression Lead(s): II, III, aVF Stage: [address] Deviation: 1.0 mm Arrhythmia: None Recovery ECG: Sinus Bradycardia, Sinus Rhythm Recovery ST Change: No significant ST segment changes noted Recovery Arrhythmia: rare PVC Clinical Reason for Termination: Fatigue Stress Symptoms: General Fatigue Exercise duration: 12 min44 sec Highest Stage Reached: Stage 5: 5.0 mph at 18% grade. Exercise capacity: 13.97 METs [place]on Treadmill Score: 11 Rate Pressure Product: [id number] Stress ECG Conclusion 1. Resting electrocardiogram showed first-degree AV block, voltage for left ventricular hypertrophy 2. Patient exercised on the Georges protocol and completed a workload of 13.97 METS, limited by fatigue 3. Normal heart rate and blood pressure response to exercise. Patient achieved greater than 100% of predicted heart rate for age 4. Electrocardiographically the test was negative for myocardial ischemia 5. Rare PVCs were seen [place] Treadmill Score is 11 which is Low risk. Stress Test Summary STAGE Time (mins) Speed (mph) Grade (%) HR BP SYMPTOMS METS Supine 59 150/78 Standing 60 152/76 1 3 1.7 10 118 154/80 4.6 2 6 2.5 12 122 162/86 7 3 9 3.4 14 130 166/88 10.2 4 12 4.2 16 140 SpO2 96% 12.9 1 min recovery 117 172/86 3 min recovery 73 174/80 6 min recovery 74 146/78
== END 2021-07-23 01:23 ==
DX: R07.9 Chest pain, unspecified (principal); Z82.49 Family history of ischemic heart disease and other diseases of the circulatory system; I10 Essential (primary) hypertension; I44.0 Atrioventricular block, first degree
CPT/HCPCS: 93016; 93018; 93017

== ENCOUNTER 2021-11-01 01:42 | Outpatient (CLI) | payer MEDICARE, BC, SELFPAY ==
--- NOTE | 2021-11-01 08:10 | DI.CT_ITS ---
Exam(s) CT SACRUM AND COCCYX WO EXAM: CT SACRUM AND COCCYX WO CLINICAL HISTORY: f/u acute transverse Sacral fracture,s32.10xa,h/o fall, continued pain TECHNIQUE: COMPARISON: CT CT CHEST PE CTA from 03/02/2020 DX Sacrum/ Coccyx from 10/27/2021 FINDINGS: CT examination of the pelvis was performed utilizing multi slice acquisition and multiplanar reconstr uction. Urinary bladder is markedly distended and mildly thick-walled and there is an apparent bladder divert iculum on the left. Findings are suggestive chronic bladder outlet obstruction. No gross pelvic mass or adenopathy. 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 There is a transverse fracture through this 3rd sacral segment which involves both anterior and poste rior elements. This is minimally displaced. No additional fracture seen involving the spine or pelv is. IMPRESSION: Third sacral segment fracture involving anterior and posterior elements, slight displacement. Additi onal findings as described above but no other evidence of acute fracture. RADIATION DOSE DELIVERED: 319.61mGy.cm Total DLP !Error CTDIvol RADIATION OPTIMIZATION: All CT scans at this facility use at least one of these dose optimization te chniques: automated exposure control; mA and/or kV adjustment per patient size (includes targeted exa ms where dose is matched to clinical indication); or iterative reconstruction.
== END 2021-11-01 02:02 ==
PROVIDERS: Visit Provider Nurse Practitioner Family
DX: S32.10XA Unspecified fracture of sacrum, initial encounter for closed fracture (principal); X58.XXXA Exposure to other specified factors, initial encounter
CPT/HCPCS: 72192

== ENCOUNTER 2022-06-27 03:06 | Outpatient (CLI) | payer MEDICARE, BC, SELFPAY ==
[2022-06-27 07:18] LABS: Abs Immature Grans 0.01 10^3/uL (0.0-0.06); Absolute Basophil Count 0.05 10^3/uL (0.0-0.2); Absolute Eosinophil Count 0.18 10^3/uL (0.0-0.7); Absolute Lymphocyte Count 1.36 10^3/uL (1.2-3.4); Absolute Monocyte Count 0.77 10^3/uL (0.1-0.8); Absolute Neutrophil Count 2.23 10^3/uL (1.2-6.7); Basophils % 1.1; Eosinophils % 3.9; HCT 41.5 % (40.0-50.0); HGB 14.1 g/dL (13.5-17.5); Immature Grans % 0.2; Lymphocytes % 29.6; MCH 32.1 pg (27.0-33.0); MCV 95 fL (80-95); MPV 9.1 fL (8.0-11.0); Monocytes % 16.7; Neutrophils % 48.5; Platelet Count 198 10^3/uL (130-400); RBC 4.39 10^6/uL (4.36-5.78); RDW 11.7 % (11.8-14.1); RDW-SD 40.4 fL
[2022-06-27 07:53] LABS: ALT 26 U/L (16-63); AST 27 U/L (15-37); Albumin 3.7 g/dL (3.4-5.0); Alkaline Phosphatase 94 U/L (46-116); Anion Gap 7.7 mmol/L (3-11); BUN 20 mg/dL (7-18); Bilirubin, Total 0.5 mg/dL (0.2-1.0); CO2 28.3 mmol/L (21.0-32.0); CREATININE 1.1 mg/dL (0.70-1.30); Calcium 8.8 mg/dL (8.5-10.1); Calculated LDL 115 mg/dL (<100); Chloride 105 mmol/L (98-107); Cholesterol 201 mg/dL (<200); Estimated GFR 70.44 (mL/min/1.73m2); Glucose 109 mg/dL (74-106); HDL Cholesterol 75 mg/dL (40-60); Potassium 4.2 mmol/L (3.5-5.1); Sodium 141 mmol/L (136-145); Triglyceride 59 mg/dL (<150)
== END 2022-06-27 03:07 | disposition home or self-care (01) ==
LOC: LBO 03:06
PROVIDERS: PCP Nurse Practitioner Family; Visit Provider Family Medicine
DX: F31.9 Bipolar disorder, unspecified (principal); Z00.00 Encounter for general adult medical examination without abnormal findings; E78.5 Hyperlipidemia, unspecified
CPT/HCPCS: 36415; 80053; 80061; 85025

== ENCOUNTER 2022-09-13 07:58 | Outpatient (CLI) | payer MEDICARE, BC, SELFPAY ==
--- NOTE | 2022-09-13 07:45 | RT.EKG_ITS ---
APPROVED REPORT Exam: Resting ECG Reason for Exam: palpitations Patient Location: O HR:61 bpm ECG Measurements Heart Rate 61 AXIS NE 202 P 45 QRSd 94 QRS 37 QT 426 T 64 QTc 429 Conclusion Sinus rhythm...normal P axis, V-rate 50- 99 Normal Electrocardiogram
== END 2022-09-13 07:59 | disposition home or self-care (01) ==
LOC: DI.CM 07:59
PROVIDERS: PCP Nurse Practitioner Family; Visit Provider Nurse Practitioner Family
DX: R00.2 Palpitations (principal)
CPT/HCPCS: 93010

== ENCOUNTER 2022-10-08 12:05 | Outpatient (CLI) | payer MEDICARE, BC, SELFPAY ==
--- NOTE | 2022-10-08 12:00 | RT.EKG_ITS ---
APPROVED REPORT Exam: Resting ECG Reason for Exam: Bradycardia Patient Location: O HR:43 bpm ECG Measurements Heart Rate 43 AXIS TN 196 P 17 QRSd 100 QRS 4 QT 526 T -67 QTc 445 Conclusion Sinus bradycardia...rate< 50 Abnormal R-wave progression, early transition...QRS area>0 in V2 Inferior infarct, age indeterminate...Q>35mS, T neg, II III aVF Abnrm T, consider ischemia, anterolateral lds...T <-0.20mV, I aVL V2-V6
== END 2022-10-08 12:06 | disposition home or self-care (01) ==
LOC: DI.CM 12:06
PROVIDERS: PCP Nurse Practitioner Family; Visit Provider Nurse Practitioner Family
DX: R00.1 Bradycardia, unspecified (principal); R94.31 Abnormal electrocardiogram [ECG] [EKG]; I25.2 Old myocardial infarction
CPT/HCPCS: 93010

== ENCOUNTER 2022-10-08 12:43 | Emergency (ER) | payer MEDICARE, BC, SELFPAY ==
[2022-10-08] VITALS (27 sets, daily range): BP systolic 124–171; BP diastolic 69–81; PULSE 34–44; RESP 11–22; TEMP 36.7; O2SAT 95–99
--- NOTE | 2022-10-08 12:30 | RT.EKG_ITS ---
APPROVED REPORT Exam: Resting ECG Reason for Exam: sophia Patient Location: E HR:41 bpm ECG Measurements Heart Rate 41 AXIS ID 205 P -29 QRSd 100 QRS -7 QT 565 T -60 QTc 464 Conclusion Sinus bradycardia...rate< 60 Inferior infarct, age indeterminate...Q>35mS, T neg, II III aVF Nonspecific T abnormalities, lateral leads...T <-0.10mV, I aVL V5 V6 Sinus bradycardia rate of 41 with first-degree AV block. T wave inversion in 2 3 and aVF new compare d to prior dated last month. Also biphasic T waves V5 V6 and T wave inversion in V4. No ST segment abnormalities.
--- NOTE | 2022-10-08 12:54 | W.ED.GENAD ---
Discharge Plan Disposition Patient Disposition: Home Condition: Stable Discharge Details Clinical Impression: Bradycardia, sinus Primary Care Provider: Francisco Espino ED Provider: Warner Morrison Home Meds and New Rx's Prescriptions: Discontinued metoprolol succinate 50 mg tablet extended release 24 hr 50 mg PO DAILY Patient Comments: TAKE ONE TABLET BY MOUTH EVERY DAY No Action lamotrigine 200 mg tablet 200 mg PO DAILY Qty: 90 1RF Rx Instructions: Take with 100mg for a total of 300mg daily lamotrigine 100 mg tablet 100 mg PO DAILY Qty: 90 1RF Rx Instructions: Take with 200mg for a total of 300mg daily atorvastatin 80 mg tablet 80 mg DAILY Patient Comments: TAKE ONE TABLET BY MOUTH EVERY EVENING clopidogrel 75 mg tablet 75 mg DAILY Patient Comments: TAKE ONE TABLET BY MOUTH EVERY DAY spironolactone 25 mg tablet 25 mg DAILY Patient Comments: TAKE ONE-HALF TABLET BY MOUTH DAILY pantoprazole 40 mg tablet,delayed release (DR/EC) 40 mg PO DAILY Patient Comments: TAKE ONE TABLET BY MOUTH EVERY DAY valsartan 40 mg tablet 40 mg DAILY Patient Comments: TAKE ONE-HALF TABLET BY MOUTH TWO TIMES A DAY Discharge Instructions Additional Instructions: You were seen in the emergency department for your low heart rate. Please discontinue your metoprolol. Please return to the emergency department if you develop any shortness of breath chest pain or nausea or vomiting. Please call your cardiology team for follow-up as soon as possible. Discharge Data Discharge Physician: Warner Morrison Medical Decision Making This is an overall well-appearing normotensive but significantly bradycardic 72-year-old male with coronary artery disease on metoprolol. It is likely that he is not tolerating his metoprolol well. In the absence of chest pain I did not send a troponin. He has not had any syncope to suggest benefit from atropine or transcutaneous pacing as he has sinus bradycardia. There are no advanced heart blocks nor any malignant dysrhythmias. We will check electrolytes to ensure that he does not have any acute electrolyte abnormalities. Anticipate touching base with cardiology at [facility] [place]. He does not appear markedly volume overloaded nor does he complain of shortness of breath to suggest CHF exacerbation. 2:24 PM I spoke with Katty MOE from [facility] [place]. She advised discontinuing the patient's metoprolol. She will help to arrange for expedited outpatient cardiology follow-up. Will ensure patient's heart rate augments appropriately with ambulation. 3 PM Patient ambulated well in the emergency department with slight improvement in his heart rate into the upper 40s. Of note his oxygen decreased to 88% on room air. He denied any dyspnea. When I reassessed him just after his amatory trial he was sitting back in bed in no acute distress with a heart rate of 40 bpm and oxygen saturation 95% on room air. He did not feel short of breath. I reassessed him and he had no lower extremity edema. Given that I am not concerned for CHF we will proceed with an empiric trial of expectant outpatient management and outpatient cardiology follow-up at [facility] [place]. I advised the patient to return to the emergency department if he felt short of breath had any chest pain or if he syncopized. Compared to his ECG at [facility] his ECG in the emergency department appeared improved in terms of inferior T wave inversions. Patient understood his return indications and was discharged with outpatient cardiology follow-up. HPI General Date/Time Provider Initiated Documentation: 10/08/22 12:53. HPI Narrative: This is a 72-year-old male on outpatient metoprolol clopidogrel aspirin and spironolactone in setting of recent ST segment MA with RCA stenosis which was stented last month at [facility] [place] last month. The patient felt his heart was racing last night and checked his heart rate at home and it was in the high 30s and low 40s. He called his primary care provider today and was advised to come to the emergency department given his bradycardia. He started metoprolol 1 week ago and chart review indicates that he is on metoprolol succinate 50 mg. He took his last dose of metoprolol last night at 5pm. Records from [facility] [place] indicates that last month patient had a decreased EF at 30 to 30%. Related Data Home Medications Medication Instructions Recorded Confirmed lamotrigine 100 mg tablet 100 mg PO DAILY #90 tabs 08/23/22 10/08/22 lamotrigine 200 mg tablet 200 mg PO DAILY #90 tabs 08/23/22 10/08/22 atorvastatin 80 mg tablet 80 mg DAILY 10/08/22 10/08/22 clopidogrel 75 mg tablet 75 mg DAILY 10/08/22 10/08/22 pantoprazole 40 mg tablet,delayed 40 mg PO DAILY 10/08/22 10/08/22 release spironolactone 25 mg tablet 25 mg DAILY 10/08/22 10/08/22 valsartan 40 mg tablet 40 mg DAILY 10/08/22 10/08/22 Previous Rx's Medication Instructions Recorded lamotrigine 100 mg tablet 100 mg PO DAILY #90 tabs 08/23/22 lamotrigine 200 mg tablet 200 mg PO DAILY #90 tabs 08/23/22 Allergies Allergy/AdvReac Type Severity Reaction Status Date / Time No Known Allergies Allergy Verified 10/08/22 11:37 General MAURA: 2 PFSH All Active Problems (Updated 10/08/22 @ 14:55 by Warner Morrison MD) Vertigo (Acute) Affective bipolar disorder (Acute) HTN (hypertension) (Chronic) SHERINE (obstructive sleep apnea) (Chronic) History of colon cancer (Acute) Chemo02/24-10/26 [facility] [place], DR. 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 Family History Mother , 81 Hypertension Stroke Father , age 89 Colon cancer Sister No problems noted. Sister No problems noted. Sister Depression Heart disease Brother No problems noted. Son No problems noted. Son No problems noted. Daughter No problems noted. Maternal Grandfather , age 68 Lung cancer Paternal Grandfather , age 80 No problems noted. Maternal Grandmother , age 88 No problems noted. Paternal Grandmother , age 40 No problems noted. Social History Smoking/Tobacco Use Status: Never Smoking risk assessment performed?: Yes Counseling given: No Counseling provided: none Household members: other Housing: apartment Communication Needs: Hard of Hearing and Corrective Lenses Do you need help understanding health information?: Often Pets and animals: No Sexually active: No Do you think of yourself as: straight/heterosexual Current gender identity: male What is your relationship status?: How often do you talk on the phone with friends or family?: never How often do you get together with friends or relatives?: decline to answer How often do you attend sabianism or church services?: 4 or more times per year Do you belong to any clubs or organized social groups?: no Panel score (0-1 are the most socially isolated patients): 1 What type of physical activity do you participate in: weight lifting and other Details: X-Cross bike; cross country skiing Duration: 60-90 minutes/day Frequency: 3-4 times per week Jamee/Latter-Day: No preference Special jamee needs: No Seatbelt use: sometimes Helmet use: Yes Drive intox or ride w/intox local company truck driver: No Do you feel safe at home: Yes Do you feel safe in your relationship?: Yes Victim of physical abuse: No Victim of emotional abuse: No Victim of sexual abuse: No Exam Narrative Exam Narrative: General: Well-appearing in no acute distress speaking in complete sentences. Head: Normocephalic, atraumatic Ear, nose, mouth, throat: Grossly normal inspection. Normal voice, handling secretions normally. Neck: Trachea midline. Cardiovascular: Well-perfused distal extremities. Regular slow rhythm. Respiratory: Nonlabored respiration. Gastrointestinal: Nondistended abdomen. Musculoskeletal: No significant lower extremity edema. Moving all 4 extremities spontaneously. Skin: Normal for age and race, grossly normal temperature and turgor. No acute rash. Neurologic: Alert and appropriate, no apparent acute deficits. Psychiatric: Mood and manner are appropriate. Grooming and personal hygiene are appropriate.
[2022-10-08 13:35] LABS: Abs Immature Grans 0.01 10^3/uL (0.0-0.06); Absolute Basophil Count 0.03 10^3/uL (0.0-0.2); Absolute Eosinophil Count 0.11 10^3/uL (0.0-0.7); Absolute Lymphocyte Count 1.13 10^3/uL (1.2-3.4); Absolute Monocyte Count 0.43 10^3/uL (0.1-0.8); Absolute Neutrophil Count 2.68 10^3/uL (1.2-6.7); Basophils % 0.7; Eosinophils % 2.5; HCT 37.7 % (40.0-50.0); HGB 12.6 g/dL (13.5-17.5); Immature Grans % 0.2; Lymphocytes % 25.7; MCH 31.7 pg (27.0-33.0); MCHC 33.4 % (32.0-36.0); MCV 95 fL (80-95); MPV 10.4 fL (8.0-11.0); Monocytes % 9.8; Neutrophils % 61.1; Platelet Count 182 10^3/uL (130-400); RBC 3.97 10^6/uL (4.36-5.78); RDW 11.9 % (11.8-14.1); RDW-SD 41.4 fL; WBC 4.39 10^3/uL (4.4-10.8)
[2022-10-08 13:43] LABS: Anion Gap 5.8 mmol/L (3-11); BUN 19 mg/dL (7-18); CO2 29.2 mmol/L (21.0-32.0); Calcium 8.7 mg/dL (8.5-10.1); Chloride 104 mmol/L (98-107); Estimated GFR 78.98 (mL/min/1.73m2); Glucose 104 mg/dL (74-106); Potassium 4.4 mmol/L (3.5-5.1); Sodium 139 mmol/L (136-145)
--- NOTE | 2022-10-08 14:43 | NUR.NOTE ---
Nursing Note: walking HR went up to 48, O2 went down to 88% while ambulating.
== END 2022-10-08 15:10 | disposition home or self-care (01) ==
PROVIDERS: Emergency Provider Emergency Medicine; PCP Nurse Practitioner Family
DX: R00.1 Bradycardia, unspecified (principal); I25.10 Atherosclerotic heart disease of native coronary artery without angina pectoris; I10 Essential (primary) hypertension; Z79.02 Long term (current) use of antithrombotics/antiplatelets; Z79.82 Long term (current) use of aspirin
CPT/HCPCS: 80048; 93005; 99283; 83735; 85025; 93010; 99282

== ENCOUNTER 2023-02-13 01:40 | Outpatient (CLI) | payer MEDICARE, BC, SELFPAY ==
--- NOTE | 2023-02-13 07:45 | DI.US_ITS ---
APPROVED REPORT EXAM: Comprehensive 2D, Doppler, and color-flow Echocardiogram Patient Location: Out-Patient Unit Operator: Ad Hunter RDMS, RVT Indications: f/u myocardial infarction Other Information Study Quality: Fair. Technically limited study due to bowel gas obscuring subcostal views. Conclusion Normal left ventricular wall thickness and chamber size. Ejection fraction is 50 to 55%. There is a n inferior wall motion abnormality Normal right ventricular size and systolic function Both atria are normal in size. There is an atrial septal aneurysm Trileaflet aortic valve with mild regurgitation Normal mitral valve with mild regurgitation Normal tricuspid valve with mild regurgitation. Right ventricular systolic pressure could not be est imated Dilated ascending aorta measuring 3.82 cm Wall motion Left Ventricle The left ventricle is normal size. Unable to obtain subcostal images due to bowel gas. The left ventr icular systolic function is normal. The left ventricular ejection fraction is within the normal range . There is normal left ventricular wall thickness. Inferior wall is akinetic LVEF is 50- 55%. Right Ventricle The right ventricle is normal size. The right ventricular systolic function is normal. Unable to asse ss PA pressure. Atria The left atrium size is normal. The right atrium size is normal. Atrial septal aneurysm is present. Aortic Valve The aortic valve is normal in structure. Aortic valve is trileaflet. There is no aortic valvular sten osis. Mild aortic regurgitation. Mitral Valve The mitral valve is normal in structure. No evidence of mitral valve stenosis. Mild mitral regurgitat ion. Tricuspid Valve The tricuspid valve is normal in structure. There is no tricuspid valve stenosis. Mild tricuspid regu rgitation. Pulmonic Valve The pulmonary valve is normal in structure. There is no pulmonic valvular stenosis. Trace pulmonic re gurgitation. Great Vessels The aortic root is normal in size. The ascending aorta is mildly dilated. Aortic arch is normal in ca liber. Unable to obtain subcostal images due to bowel gas. Pericardium There is no pericardial effusion. 2D Dimensions IVSD d PLAX 0.62 cm M: 0.6-1.2 LV Vol A2C d MOD 143.4 mL LVPW d PLAX 0.62 cm M: 0.6 - 1.2 LV Vol A4C d MOD 159.6 mL LVID d PLAX 4.77 cm M: 4.2 - 5.8 LV EF A4C MOD 48.3 % LVDs 3.20 cm M: 2.5 - 4.0 LV EF A2C MOD 48.6 % Ao Root d 2.82 cm M: 3.1 - 3.7 LV EF Biplane MOD 48.0 % Ao Asc Diam d 3.82 cm M: 2.6 - 3.4 SV 72.61 mL LV EF Teichholz 60.1 % SV Index 38.06 mL/m2 LVEF (Nunez's) 47.98 % M: 52 - 72 LV Volume 115.32 mL M: 62 - 150 LV Volume Index 60.37 mL/m2 M: 34 - 74 LV Vol Biplane MOD 151.3 mL FS 32.05 % M-Mode TAPSE 2.78 cm (M/F) >1.7 LV Diastology MV E' medial 0.085 (>0.07 m/s) E/A Ratio 0.6 LV E/e MED 4.90 (<14) MV E Vmax 0.42 (0.4-1.3 m/s) MV E' lateral 0.112 (>0.1 m/s) MV A Vmax 0.65 (0.4-1.3 m/s) LV E/e LAT 3.70 (<14) MV E/A Ratio 0.60 MV E/E' medial 4.92 MV E/E' lateral 3.71 Aortic Valve LVOT Area 3.25 cm2 AoV Area Vmax 2.45 cm2 LVOT Vmax 0.94 m/s AoV Area/ BSA (Vmax) 1.29 cm2/m2 LVOT Mean Gustavo. 0.55 m/s MEGAN Mean Gustavo. 2.15 cm2 LVOT Peak Grad 3.5 mmHg MEGAN Mean Gustavo. Index 1.13 cm2/m2 LVOT Mean Grad 1.5 mmHg AR DT 3530 msec LVOT VTI 0.223 m AR PHT 1024 msec LVOT Diam s 2.00 cm AoV Vmax 1.25 m/s Velocity Ratio 0.75 AoV Mean Gustavo. 0.83 m/s AoV Peak Grad 6.2 mmHg LVOT SV 72.65 mL AoV Mean Grad 3.2 mmHg AoV VTI 0.253 m AoV Area VTI 2.87 cm2 AoV Area/ BSA (VTI) 1.51 cm/m2 Mitral Valve MV DT 230 (160-240 msec) MV PHT 67 msec MV Area PHT 3.30 cm2 MV VTI 0.262 m MV Area VTI 2.77 (4.0-6.0 cm2) Pulmonary Valve PV Vmax 1.10 (0.5-1.5 m/s) RVOT Peak Gr. 0.80 mmHg PV Peak Grad 4.9 mmHg RVOT Mean Gr. 0.45 mmHg PV Mean Grad 2.5 mmHg RVOT VTI 0.105 m PV VTI 0.247 m RVOT Vmax 0.45 m/s Tricuspid Valve TR Peak Grad 12.5 mmHg TR Vmax 1.77 m/s
== END 2023-02-13 02:00 ==
LOC: DI 01:40
PROVIDERS: PCP Nurse Practitioner Family; Visit Provider Nurse Practitioner Family
DX: I21.9 Acute myocardial infarction, unspecified (principal)
CPT/HCPCS: 93306

== ENCOUNTER 2023-03-28 12:28 | Emergency (ER) | payer MEDICARE, BC, SELFPAY ==
[2023-03-28 12:35] VITALS: BP 137/79; PULSE 55; RESP 18; TEMP 36.6; O2SAT 98
--- NOTE | 2023-03-28 12:57 | ED.GENADUL_ITS ---
Discharge Plan Disposition Patient Disposition: Home Discharge Details Clinical Impression: Cellulitis Primary Care Provider: Francisco Espino ED Provider: Gabriel Vail Home Meds and New Rx's Prescriptions: Continued spironolactone 25 mg tablet 25 mg PO DAILY Qty: 90 3RF Entresto 24-26 mg tablet 1 tab PO BID Qty: 180 0RF lamotrigine 200 mg tablet 200 mg PO DAILY Qty: 90 1RF Rx Instructions: Take with 100mg for a total of 300mg daily lamotrigine 100 mg tablet 100 mg PO DAILY Qty: 90 1RF Rx Instructions: Take with 200mg for a total of 300mg daily atorvastatin 80 mg tablet 80 mg DAILY Patient Comments: TAKE ONE TABLET BY MOUTH EVERY EVENING clopidogrel 75 mg tablet 75 mg DAILY Patient Comments: TAKE ONE TABLET BY MOUTH EVERY DAY pantoprazole 40 mg tablet,delayed release (DR/EC) 40 mg PO DAILY Patient Comments: TAKE ONE TABLET BY MOUTH EVERY DAY valsartan 40 mg tablet 40 mg DAILY Patient Comments: TAKE ONE-HALF TABLET BY MOUTH TWO TIMES A DAY No Action cefuroxime axetil 500 mg tablet 500 mg PO BID 7 Days Qty: 14 0RF Discharge Instructions Instructions: Cellulitis (ED) Additional Instructions: Please start your oral antibiotic this evening and take as prescribed. Return to the emergency department for any new or significant worsening of symptoms otherwise follow-up with your primary care provider if not improving in the next 3 to 4 days. Referrals: Francisco Espino, [employer] [Primary Care Provider] - Discharge Data Discharge Date/Time-TO BE ENTERED AT DEPARTURE: 03/28/23 14:41 Medical Decision Making Patient referred to the emergency department from [facility] due to concern of cellulitis of right lower extremity. They noted a fever, and erythema consistent with cellulitis to right lower extremity. Patient denies any injury or trauma, does state some nausea and pretty significant malaise that started approximately 1 day after noticing pain and discomfort to ankle. Patient denies chest pain shortness of breath difficulty breathing or other symptoms. Physical exam shows moderate edema to right lower extremity that is from the distal third of the tib-fib down to the ankle, tender erythema to the anterior lateral aspect of the ankle otherwise normal pulses, sensation and movement of toes and foot, no calf pain or tenderness, exam otherwise unremarkable. I do feel this is consistent with cellulitis. I do see a [facility] is concerned due to fever and some systemic symptoms so we will check blood work and give initial dose of antibiotics IV but suspect we will be able to start outpatient treatment initial ly and have patient monitor on outpatient basis. Reviewed patient's labs and patient has anemia which does not appear new but noncritical with hemoglobin of 12.9, lymphocytes slightly low at 0.88 otherwise CBC is nondiagnostic and unremarkable, CMP all within normal range. Patient still pending blood cultures but given overall unremarkable CBC and nonseptic presentation with no tachycardia, no hypoxia, no tachypnea or hypotension I do feel that patient can continue outpatient therapy and return for new or worsening symptoms. Patient placed on cefuroxime. After discussion of diagnosis and plan of care patient has no further needs, questions, or concerns and states clear understanding to return to the emergency department for any worsening symptoms. This documentation was generated using CoverItLive[employer] system, please disregard any oddities of phrase or misspellings. HPI General Mode of arrival: ambulatory . Date/Time Provider Initiated Documentation: 03/28/23 12:39 . Limitations to Documentation: no limitations . Information obtained by: patient and RN notes reviewed . History of Present Illness 73 year old M presents to the emergency department with the chief com plaint of Right ankle swelling and pain, described as moderate, Quality is described as aching, and is localized to the right and lower extremity. Patient reports no radiation. Patient started experiencing this day(s) (4) and it has been constant. No relieving factors improve symptom(s), No exacerbating factors reported . Patient notes fever/chills, malaise and nausea/vomiting. Patient did receive the following treatments prior to arrival, none Related Data Home Medications Medication Instructions Recorded Confirmed atorvastatin 80 mg tablet 80 mg DAILY 10/08/22 03/29/23 clopidogrel 75 mg tablet 75 mg DAILY 10/08/22 03/29/23 pantoprazole 40 mg tablet,delayed 40 mg PO DAILY 10/08/22 03/29/23 release valsartan 40 mg tablet 40 mg DAILY 10/08/22 03/29/23 sacubitril 24 mg-valsartan 26 mg 1 tab PO BID #180 tabs 02/07/23 03/29/23 tablet (Entresto) lamotrigine 100 mg tablet 100 mg PO DAILY #90 tabs 02/21/23 03/29/23 lamotrigine 200 mg tablet 200 mg PO DAILY #90 tabs 02/21/23 03/29/23 spironolactone 25 mg tablet 25 mg PO DAILY #90 tabs 03/18/23 03/29/23 cefuroxime axetil 500 mg tablet 500 mg PO BID 7 days #14 tabs 03/29/23 03/29/23 Previous Rx's Medication Instructions Recorded sacubitril 24 mg-valsartan 26 mg 1 tab PO BID #180 tabs 02/07/23 tablet (Entresto) lamotrigine 100 mg tablet 100 mg PO DAILY #90 tabs 02/21/23 lamotrigine 200 mg tablet 200 mg PO DAILY #90 tabs 02/21/23 spironolactone 25 mg tablet 25 mg PO DAILY #90 tabs 03/18/23 cefuroxime axetil 500 mg tablet 500 mg PO BID 7 days #14 tabs 03/29/23 Allergies Allergy/AdvReac Type Severity Reaction Status Date / Time No Known Allergies Allergy Verified 03/29/23 09:25 General Stated Complaint: Cellulitis MAURA: 3 Review of Systems Constitutional Constitutional: Denies chills, Reports fatigue, Reports fever(s), Denies headache(s) and Reports malaise ENT Ears, Nose, Mouth, and Throat: Denies headache(s) Cardiovascular Cardiovascular: Denies chest pain and Denies dyspnea Respiratory Respiratory: Denies dyspnea Gastrointestinal Gastrointestinal: Denies abdominal pain and Reports nausea Musculoskeletal Musculoskeletal: Reports as per HPI, Reports arthralgias and Reports joint swelling Integumentary/Breasts Skin/Breast: Reports erythema and Reports skin pain Neurologic Neurologic: Denies headache(s) Endocrine Endocrine: Reports fatigue PFSH All Active Problems (Updated 03/28/23 @ 14:24 by Gabriel Vail NP) Vertigo (Acute) Affective bipolar disorder (Acute) HTN (hypertension) (Chronic) SHERINE (obstructive sleep apnea) (Chronic) History of colon cancer (Acute) Chemo02/24-10/26 [facility] – [place], DR. 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- Actinic keratosis (Chronic) Benign appearance - see photo 07/2020 Annual physical exam (Acute) Chest pain due to psychological stress (Acute) Anxiety and depression (Chronic) Sacral fracture (Acute) Heart block AV first degree (Acute) Noted during ETT 10/2021 Palpitations (Acute) Myocardial infarct (Chronic) 99% occlusion RCA, stent placed 09/19/22, treated at [facility] – [place] Cellulitis (Acute) Medical History Anemia Colon cancer Complicated laceration of hand Neutropenia Surgical History History of partial colectomy (~03/2003) S/P herniorrhaphy (~1991) RIGHT ING. Family History Mother , 81 Hypertension Stroke Father , age 89 Colon cancer Sister No problems noted. Sister No problems noted. Sister Depression Heart disease Brother No problems noted. Son No problems noted. Son No problems noted. Daughter No problems noted. Maternal Grandfather , age 68 Lung cancer Paternal Grandfather , age 80 No problems noted. Maternal Grandmother , age 88 No problems noted. Paternal Grandmother , age 40 No problems noted. Social History Smoking/Tobacco Use Status: Never Smoking risk assessment performed?: Yes Alcohol Intake: current Alcohol Intake frequency: a few times a month Alcohol type: hard liquor Drug use: Never Substance use type: does not use Counseling given: No Counseling provided: none Household members: other Housing: apartment Communication Needs: Hard of Hearing and Corrective Lenses Do you need help understanding health information?: Often Pets and animals: No Sexually active: No Do you think of yourself as: straight/heterosexual Current gender identity: male What is your relationship status?: How often do you talk on the phone with friends or family?: never How often do you get together with friends or relatives?: decline to answer How often do you attend anabaptist or buddhist services?: 4 or more times per year Do you belong to any clubs or organized social groups?: no Panel score (0-1 are the most socially isolated patients): 1 What type of physical activity do you participate in: weight lifting and other Details: X-Cross bike; cross country skiing Duration: 60-90 minutes/day Frequency: 3-4 times per week Jamee/Pentecostal: No preference Special jamee needs: No Seatbelt use: sometimes Helmet use: Yes Drive intox or ride w/intox 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 Do you feel safe at home: Yes Do you feel safe in your relationship?: Yes Victim of physical abuse: No Victim of emotional abuse: No Victim of sexual abuse: No Exam Const General: cooperative, no acute distress and not ill appearing Orientation: alert, awake and oriented x3 HENMT Mouth: moist mucous membranes Resp Effort & Inspection: normal respiratory effort, able to speak in complete sentences and no respiratory distress Cardio Rate: regular rate Rhythm: regular rhythm Pulses: normal peripheral pulses Skin General skin exam: no rashes or lesions noted Neuro General: patient alert, patient awake, patient oriented x3, moves all extremities and no focal motor deficits Sensory Exam: no sensory deficits noted Extrem General: normal exam except as noted Right lower extremity: ankle Details: abnormal to inspection Details: erythematous, tenderness Location: anterolaterally, swelling Details: diffusely, normal ROM and warmth Location: anterolaterally; no abrasions and no lacerations Course Vital Signs Vital signs: Vital Signs Temperature 36.6 C 03/28/23 12:35 Pulse 55 L 03/28/23 12:35 Respiratory Rate 18 03/28/23 12:35 Blood Pressure 137/79 03/28/23 12:35 Pulse Oximetry 98 03/28/23 12:35 Temperature 36.6 C 03/28/23 12:35 Temperature Source Oral 03/28/23 12:35 Pulse 55 L 03/28/23 12:35 Respiratory Rate 18 03/28/23 12:35 Respiratory Effort Normal, Non-Labored 03/28/23 12:42 Blood Pressure 137/79 03/28/23 12:35 Blood Pressure Position Sitting 03/28/23 12:35 Pulse Oximetry 98 03/28/23 12:35 Oxygen Delivery Method Room Air 03/28/23 12:35 Oxygen Flow Rate 0 03/28/23 12:35 Pain Level 8 03/28/23 12:35 PAWSS Have you Been Recently Intoxicated or Drunk Within the Last 30 days?: No Have you Ever Experienced Previous Episodes of Alcohol Withdrawal?: No Have you ever Experienced Withdrawal Seizures?: No Have you ever Experienced Delirium Tremens(DT)s?: No Have you ever undergone Alcohol Rehabilitation Treatment (i.e, inpt ot outpatient treatment programs)?: No Have you ever Experienced Blackouts?: No Have you ever Combined Alcohol with other Downers within the last 90 days?: No Have you ever Combined Alcohol with any other Substance of Abuse during the last 90 days?: No Positive Blood Alcohol level on Presentation? [PCS.BAL]: No Evidence of Increased Autonomic Activity (i.e. HR>120, tremor, sweating, agitation, nausea)?: No Result: 0
[2023-03-28 13:32] LABS: Abs Immature Grans 0.02 10^3/uL (0.0-0.06); Absolute Basophil Count 0.02 10^3/uL (0.0-0.2); Absolute Eosinophil Count 0.08 10^3/uL (0.0-0.7); Absolute Lymphocyte Count 0.88 10^3/uL (1.2-3.4); Absolute Monocyte Count 0.58 10^3/uL (0.1-0.8); Absolute Neutrophil Count 4.11 10^3/uL (1.2-6.7); Basophils % 0.4; Eosinophils % 1.4; HCT 37.2 % (40.0-50.0); HGB 12.9 g/dL (13.5-17.5); Immature Grans % 0.4; Lymphocytes % 15.5; MCH 32.3 pg (27.0-33.0); MCHC 34.7 % (32.0-36.0); MCV 93 fL (80-95); MPV 9.4 fL (8.0-11.0); Monocytes % 10.2; Neutrophils % 72.1; Platelet Count 163 10^3/uL (130-400); RBC 3.99 10^6/uL (4.36-5.78); RDW 11.3 % (11.8-14.1); RDW-SD 38.4 fL; WBC 5.69 10^3/uL (4.4-10.8)
[2023-03-28 13:42] LABS: ALT 36 U/L (16-63); AST 32 U/L (15-37); Albumin 3.5 g/dL (3.4-5.0); Alkaline Phosphatase 88 U/L (46-116); Anion Gap 7.5 mmol/L (3-11); BUN 12 mg/dL (7-18); Bilirubin, Total 0.5 mg/dL (0.2-1.0); CO2 29.5 mmol/L (21.0-32.0); CREATININE 1.1 mg/dL (0.70-1.30); Calcium 8.7 mg/dL (8.5-10.1); Chloride 103 mmol/L (98-107); Estimated GFR 70.01 (mL/min/1.73m2); Glucose 101 mg/dL (74-106); Sodium 140 mmol/L (136-145); Total Protein 6.6 g/dL (6.4-8.2)
[2023-03-28] MEDS: ceFAZolin 1 GM/50 ML BAG IVPB (13:58)
== END 2023-03-28 14:41 | disposition home or self-care (01) ==
PROVIDERS: Emergency Provider Nurse Practitioner Family; PCP Nurse Practitioner Family
DX: L03.115 Cellulitis of right lower limb; D64.9 Anemia, unspecified
CPT/HCPCS: 36415; 80053; 87040; 99283; 83735; 85025; 99284; J0690

== ENCOUNTER 2023-04-01 18:14 | Emergency (ER) | payer MEDICARE, BC, SELFPAY ==
[2023-04-01 18:20] VITALS: BP 154/91; PULSE 67; RESP 18; TEMP 36.8; O2SAT 98
--- NOTE | 2023-04-01 18:54 | ED.GENADUL_ITS ---
Discharge Plan Disposition Patient Disposition: Home Condition: Stable Discharge Details Clinical Impression: Cellulitis of right ankle Primary Care Provider: Francisco Espino ED Provider: Carli Loja Home Meds and New Rx's Prescriptions: Continued spironolactone 25 mg tablet 25 mg PO DAILY Qty: 90 3RF cefuroxime axetil 500 mg tablet 500 mg PO BID 7 Days Qty: 14 0RF Entresto 24-26 mg tablet 1 tab PO BID Qty: 180 0RF lamotrigine 200 mg tablet 200 mg PO DAILY Qty: 90 1RF Rx Instructions: Take with 100mg for a total of 300mg daily lamotrigine 100 mg tablet 100 mg PO DAILY Qty: 90 1RF Rx Instructions: Take with 200mg for a total of 300mg daily atorvastatin 80 mg tablet 80 mg DAILY Patient Comments: TAKE ONE TABLET BY MOUTH EVERY EVENING clopidogrel 75 mg tablet 75 mg DAILY Patient Comments: TAKE ONE TABLET BY MOUTH EVERY DAY pantoprazole 40 mg tablet,delayed release (DR/EC) 40 mg PO DAILY Patient Comments: TAKE ONE TABLET BY MOUTH EVERY DAY valsartan 40 mg tablet 40 mg DAILY Patient Comments: TAKE ONE-HALF TABLET BY MOUTH TWO TIMES A DAY Discharge Instructions Instructions: Cellulitis (ED) Additional Instructions: Heat 20 minutes on and 20 minutes off. Stay off your foot for the next 48 hours. Wear the Matthew wrap for support. Continue the cefuroxime antibiotic as prescribed. Coated aspirin 650 mg every 6 hours as needed for pain. You may alternate this with Tylenol 650 mg every 6 hours. Recheck with your primary care doctor later this week. Return to ED for increased redness, red streaks up your leg, fever of 100.4 or above. Discharge Data Discharge Date/Time-TO BE ENTERED AT DEPARTURE: 04/01/23 20:22 Medical Decision Making CBC, sed rate, and CRP all looked great. The patient's redness is diminished. He will take pain medication and stay off of his foot. He will continue his cefuroxime and follow-up with his PCP as needed the end of the week. He will return to the ED for fever of 100.4 or above or redness that extends outside the circumscribed area. HPI General Date/Time Provider Initiated Documentation: 04/01/23 18:48 . HPI Narrative: This 73-year-old male patient presents with a chief complaint of right lateral ankle cellulitis. Patient was seen in the ED on the fourth and given 500 mg twice daily cefuroxime. His white blood cell count was normal at that time. Patient evidently had a problem getting the antibiotic and on the fifth went to urgent care. He was given a gram of IM Rocephin at that time. He was discharged with another prescription for cefuroxime 500 mg twice daily. The patient states he has been taking it since then. He drives for a living. He has been using his right foot and ankle a lot. It does not hurt him to move his ankle. He returned today because his ankle is still hurting him. He has only been taking Tylenol for the pain. He does have a cardiac history and does not take NSAIDs. He denies documented fever or rigors. The area of redness on his ankle has been outlined previously and the redness has decreased in size. Related Data Home Medications Medication Instructions Recorded Confirmed atorvastatin 80 mg tablet 80 mg DAILY 10/08/22 04/01/23 clopidogrel 75 mg tablet 75 mg DAILY 10/08/22 04/01/23 pantoprazole 40 mg tablet,delayed 40 mg PO DAILY 10/08/22 04/01/23 release valsartan 40 mg tablet 40 mg DAILY 10/08/22 04/01/23 sacubitril 24 mg-valsartan 26 mg 1 tab PO BID #180 tabs 02/07/23 04/01/23 tablet (Entresto) lamotrigine 100 mg tablet 100 mg PO DAILY #90 tabs 02/21/23 04/01/23 lamotrigine 200 mg tablet 200 mg PO DAILY #90 tabs 02/21/23 04/01/23 spironolactone 25 mg tablet 25 mg PO DAILY #90 tabs 03/18/23 04/01/23 cefuroxime axetil 500 mg tablet 500 mg PO BID 7 days #14 tabs 03/29/23 04/01/23 Previous Rx's Medication Instructions Recorded sacubitril 24 mg-valsartan 26 mg 1 tab PO BID #180 tabs 02/07/23 tablet (Entresto) lamotrigine 100 mg tablet 100 mg PO DAILY #90 tabs 02/21/23 lamotrigine 200 mg tablet 200 mg PO DAILY #90 tabs 02/21/23 spironolactone 25 mg tablet 25 mg PO DAILY #90 tabs 03/18/23 cefuroxime axetil 500 mg tablet 500 mg PO BID 7 days #14 tabs 03/29/23 Allergies Allergy/AdvReac Type Severity Reaction Status Date / Time No Known Allergies Allergy Verified 04/01/23 18:24 General Stated Complaint: Cellulitis MAURA: 4 Review of Systems Constitutional Constitutional: Denies chills, Denies fever(s), Denies headache(s) and Denies weakness Eyes Eyes: Denies diplopia and Reports other (no redness) ENT Ears, Nose, Mouth, and Throat: Denies otalgia, Denies headache(s), Denies nasal congestion, Denies nasal discharge, Denies neck pain and Denies sore throat Cardiovascular Cardiovascular: Denies chest pain, Denies palpitations and Denies dyspnea Respiratory Respiratory: Denies cough and Denies dyspnea Gastrointestinal Gastrointestinal: Denies abdominal pain, Denies diarrhea, Denies nausea and Denies vomiting Genitourinary Genitourinary: Denies difficulty urinating and Denies dysuria Musculoskeletal Musculoskeletal: Denies myalgias, Reports arthralgias (R ankle), Denies muscle weakness, Denies neck pain, Denies numbness and Reports other (mild edema around erythema on ankle) Integumentary/Breasts Skin/Breast: Denies change in pigmentation and Denies rash Neurologic Neurologic: Denies headache(s), Denies numbness and Denies weakness Endocrine Endocrine: Denies palpitations PFSH All Active Problems (Updated 04/01/23 @ 19:41 by Carli Loja MD) Vertigo (Acute) Affective bipolar disorder (Acute) HTN (hypertension) (Chronic) SHERINE (obstructive sleep apnea) (Chronic) History of colon cancer (Acute) [place]7-10[place]26 [facility] 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- Actinic keratosis (Chronic) Benign appearance - see photo 07/2020 Annual physical exam (Acute) Chest pain due to psychological stress (Acute) Anxiety and depression (Chronic) Sacral fracture (Acute) Heart block AV first degree (Acute) Noted during ETT 10/2021 Palpitations (Acute) Myocardial infarct (Chronic) 99% occlusion RCA, stent [place] 09/19/22, [place] [facility] [place]itis (Acute) Cellulitis of right ankle (Acute) Medical History Anemia Colon cancer Complicated laceration of hand Neutropenia Surgical History History of partial colectomy (~03/2003) S/P herniorrhaphy (~1991) RIGHT ING. Family History Mother , 81 Hypertension Stroke Father , age 89 Colon cancer Sister No problems noted. Sister No problems noted. Sister Depression Heart disease Brother No problems noted. Son No problems noted. Son No problems noted. Daughter No problems noted. Maternal Grandfather , age 68 Lung cancer Paternal Grandfather , age 80 No problems noted. Maternal Grandmother , age 88 No problems noted. Paternal Grandmother , age 40 No problems noted. Social History Smoking/Tobacco Use Status: Never Smoking risk assessment performed?: Yes Alcohol Intake: current Alcohol Intake frequency: a few times a month Alcohol type: hard liquor Drug use: Never Substance use type: does not use Counseling given: No Counseling provided: none Household members: other Housing: apartment Communication Needs: Hard of Hearing and Corrective Lenses Do you need help understanding health information?: Often Pets and animals: No Sexually active: No Do you think of yourself as: straight/heterosexual Current gender identity: male What is your relationship status?: How often do you talk on the phone with friends or family?: never How often do you get together with friends or relatives?: decline to answer How often do you attend zoroastrian or episcopal services?: 4 or more times per year Do you belong to any clubs or organized social groups?: no Panel score (0-1 are the most socially isolated patients): 1 What type of physical activity do you participate in: weight lifting and other Details: X-Cross bike; cross country skiing Duration: 60-90 minutes/day Frequency: 3-4 times per week Jamee/Faith: No preference Special jamee needs: No Seatbelt use: sometimes Helmet use: Yes Drive intox or ride w/intox otr flatbed driver: No Do you feel safe at home: Yes Do you feel safe in your relationship?: Yes Victim of physical abuse: No Victim of emotional abuse: No Victim of sexual abuse: No Exam Const General: no acute distress, well developed, well groomed and not in acute distress Nutritional Appearance: well nourished Orientation: alert and oriented x3 [facility] Head: normocephalic and atraumatic Ears: external ears normal Mouth: oropharynx normal and moist mucous membranes Throat: posterior oropharynx normal Eyes Conjunctivae: conjunctivae normal Neck Neck: full ROM and supple Chest Chest: normal inspection of the chest Resp Effort & Inspection: normal respiratory effort Auscultation: clear to auscultation bilaterally Cardio Rate: regular rate Rhythm: regular rhythm Heart Sounds: no murmurs and no rubs GI Inspection: normal to inspection Palpation: soft, nontender and other (non distended) Auscultation: normal bowel sounds Skin General skin exam: no rashes or lesions noted and other (pink, warm, dry) Neuro General: patient alert, patient awake and patient oriented x3 Speech: speech normal Motor: other (DE [place]) Sensory Exam: no sensory deficits noted Extrem General: full ROM, edema (mild anterior to R ankle; no joint pain w/movement) and other (R lat ankle w/erythema/heat anteriorly, TTP, redness has lessened f/outline) Psych Mental Status: mental status grossly normal Speech and Movement: speech and movement normal Affect: normal affect Course WBC w/inflam markers pending. I have advised pt. to take coated aspirin 650 mg every 6 hrs as needed for pain and to rest his foot for 48 hrs. His abx seem to be working as the redness has lessened from prior outlines. We will wrap his ankle with an MATTHEW. Vital Signs Vital signs: Vital Signs Temperature 36.8 C 04/01/23 18:20 Pulse 67 04/01/23 18:20 Respiratory Rate 18 04/01/23 18:20 Blood Pressure 154/91 H 04/01/23 18:20 Pulse Oximetry 98 04/01/23 18:20 Temperature 36.8 C 04/01/23 18:20 Temperature Source Oral 04/01/23 18:20 Pulse 67 04/01/23 18:20 Respiratory Rate 18 04/01/23 18:20 Respiratory Effort Normal, Non-Labored 04/01/23 18:28 Blood Pressure 154/91 H 04/01/23 18:20 Blood Pressure Position Sitting 04/01/23 18:20 Pulse Oximetry 98 04/01/23 18:20 Oxygen Delivery Method Room Air 04/01/23 18:20 Oxygen Flow Rate 0 04/01/23 18:20 Pain Level 3 04/01/23 18:20
[2023-04-01 19:44] LABS: Abs Immature Grans 0.01 10^3/uL (0.0-0.06); Absolute Basophil Count 0.05 10^3/uL (0.0-0.2); Absolute Eosinophil Count 0.09 10^3/uL (0.0-0.7); Absolute Lymphocyte Count 1.23 10^3/uL (1.2-3.4); Absolute Monocyte Count 0.48 10^3/uL (0.1-0.8); Absolute Neutrophil Count 3.45 10^3/uL (1.2-6.7); Basophils % 0.9; Eosinophils % 1.7; HCT 39.4 % (40.0-50.0); HGB 13.7 g/dL (13.5-17.5); Immature Grans % 0.2; Lymphocytes % 23.2; MCH 32.1 pg (27.0-33.0); MCHC 34.8 % (32.0-36.0); MCV 92 fL (80-95); MPV 9.1 fL (8.0-11.0); Platelet Count 202 10^3/uL (130-400); RBC 4.27 10^6/uL (4.36-5.78); RDW 11.3 % (11.8-14.1); RDW-SD 38.5 fL; WBC 5.31 10^3/uL (4.4-10.8)
[2023-04-01 19:47] LABS: ESR 4 mm/hr (0-20)
[2023-04-01] MEDS: Aspirin E.C. 325 MG TABEC 650 MG PO (19:59)
[2023-04-01 20:03] LABS: ALT 42 U/L (16-63); AST 48 U/L (15-37); Albumin 3.8 g/dL (3.4-5.0); Alkaline Phosphatase 101 U/L (46-116); Anion Gap 7.2 mmol/L (3-11); BUN 15 mg/dL (7-18); Bilirubin, Total 0.4 mg/dL (0.2-1.0); C-Reactive Protein 0.29 mg/dL (0.0-0.3); CO2 27.8 mmol/L (21.0-32.0); Calcium 9.1 mg/dL (8.5-10.1); Chloride 104 mmol/L (98-107); Estimated GFR 78.49 (mL/min/1.73m2); Glucose 98 mg/dL (74-106); Potassium 3.9 mmol/L (3.5-5.1); Sodium 139 mmol/L (136-145); Total Protein 7.1 g/dL (6.4-8.2)
[2023-04-01 20:20] VITALS: PULSE 70; RESP 20; O2SAT 98
== END 2023-04-01 20:22 | disposition home or self-care (01) ==
PROVIDERS: Emergency Provider Emergency Medicine; PCP Nurse Practitioner Family
DX: L03.115 Cellulitis of right lower limb (principal); I10 Essential (primary) hypertension; I25.2 Old myocardial infarction; Z95.5 Presence of coronary angioplasty implant and graft; Z79.02 Long term (current) use of antithrombotics/antiplatelets
CPT/HCPCS: 80053; 85652; 85025; 86140; 99282; 99283

== ENCOUNTER 2023-05-11 17:53 | Emergency (ER) | payer MEDICARE, BC, SELFPAY ==
[2023-05-11 17:55] VITALS: BP 146/85; PULSE 92; RESP 18; TEMP 36.2; O2SAT 98
--- NOTE | 2023-05-11 18:15 | DI.CT_ITS ---
Exam(s) CT HEAD CERVICAL SPINE WO EXAM: CT HEAD CERVICAL SPINE WO CLINICAL HISTORY: fall, pain. TECHNIQUE: Imaging Protocol: Axial computed tomography images with coronal and sagittal reformatted images were created and reviewed COMPARISON: CT CT HEAD WO from 03/02/2020 FINDINGS: Head CT Ventricles and Extra axial spaces: Normal in size and morphology for the patient's age. Hemorrhage: None. Cerebral parenchyma: White matter changes consistent sequela of chronic microvascular ischemia. No a cute infarct or mass. Midline shift: None. Brainstem/Cerebellum: Normal. Calvarium: Normal. Visualized Paranasal sinuses/Mastoids: Clear. Soft tissues: Unremarkable. Cervical Spine CT BONES: Vertebral body heights are maintained. Alignment is normal. There is no evidence of acute frac ture. Degenerative disc changes and facet degenerative changes are seen . SOFT TISSUES: No paraspinal hematoma. The airway appears intact. No pneumothorax is seen at the lung apices. IMPRESSION: Head CT: No acute abnormality. C-spine CT: Degenerative changes, no acute abnormality. RADIATION DOSE DELIVERED: 1,157.14mGy.cm Total DLP DATA REPOSITORY: All CT scans at this facility are submitted to the National Radiology Data Registry (NRDR) Dose Index Registry (DIR) with the [employer] (ACR). RADIATION OPTIMIZATION: All CT scans at this facility use at least one of these dose optimization te chniques: automated exposure control; mA and/or kV adjustment per patient size (includes targeted exa ms where dose is matched to clinical indication); or iterative reconstruction.
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
== END 2023-05-11 19:30 | disposition home or self-care (01) ==
PROVIDERS: Emergency Provider Emergency Medicine; PCP Nurse Practitioner Family
DX: S09.8XXA Other specified injuries of head, initial encounter (principal); V18.0XXA Pedal cycle driver injured in noncollision transport accident in nontraffic accident, initial encounter
CPT/HCPCS: 99284; 70450; 72125; 99283

== ENCOUNTER 2023-11-17 19:21 | Emergency (ER) | payer MEDICARE, BC, SELFPAY ==
[2023-11-17] VITALS (49 sets, daily range): BP systolic 126–211; BP diastolic 63–137; PULSE 52–75; RESP 9–21; O2SAT 100
--- NOTE | 2023-11-17 19:15 | DI.RAD_ITS ---
Exam(s) XR PORTABLE CHEST AP EXAM: XR PORTABLE CHEST AP CLINICAL HISTORY: chest pain TECHNIQUE: 2D digital imaging was performed of the chest. One image was obtained. An AP view was ob tained. COMPARISON: No exams were available for comparison FINDINGS: MEDIASTINUM: Normal. HEART: Normal. PULMONARY VASCULATURE: Normal. LUNGS: Clear. PLEURAL SPACE: No pleural effusion or pneumothorax. BONE:Within normal limits for the patient's age. OTHER FINDINGS:Normal. IMPRESSION: No acute pulmonary findings. DATA REPOSITORY: RADIATION DOSE DELIVERED:
--- NOTE | 2023-11-17 19:15 | RT.EKG_ITS ---
APPROVED REPORT Exam: Resting ECG Reason for Exam: Chest Pain Patient Location: E HR:65 bpm ECG Measurements Heart Rate 65 AXIS VA 216 P 44 QRSd 91 QRS -2 QT 434 T 40 QTc 451 Conclusion sinus 65 prolonged pr 216 no stemi
[2023-11-17] MEDS: Aspirin 81 MG CHEW (19:59)
[2023-11-17] MEDS: nitroGLYcerin 0.4 MG TAB (20:00)
[2023-11-17 20:04] LABS: Abs Immature Grans 0.01 10^3/uL (0.0-0.06); Absolute Basophil Count 0.03 10^3/uL (0.0-0.2); Absolute Eosinophil Count 0.14 10^3/uL (0.0-0.7); Absolute Lymphocyte Count 1.54 10^3/uL (1.2-3.4); Absolute Monocyte Count 0.63 10^3/uL (0.1-0.8); Absolute Neutrophil Count 3.14 10^3/uL (1.2-6.7); Basophils % 0.5; Eosinophils % 2.6; HCT 40.8 % (40.0-50.0); HGB 14.4 g/dL (13.5-17.5); Immature Grans % 0.2; Lymphocytes % 28.1; MCH 33.3 pg (27.0-33.0); MCHC 35.3 % (32.0-36.0); MCV 94 fL (80-95); MPV 9.1 fL (8.0-11.0); Monocytes % 11.5; Neutrophils % 57.1; Platelet Count 225 10^3/uL (130-400); RBC 4.33 10^6/uL (4.36-5.78); RDW 11.7 % (11.8-14.1); RDW-SD 40.4 fL; WBC 5.49 10^3/uL (4.4-10.8)
--- NOTE | 2023-11-17 20:05 | DI.VRAD_ITS ---
PROCEDURE INFORMATION: Exam: XR Chest Exam date and time: 11/17/2023 7:38 PM Age: 73 years old Clinical indication: Other: Chest pain TECHNIQUE: Imaging protocol: Radiologic exam of the chest. Views: 1 view. COMPARISON: CT CHEST PE CTA 03/02/2020 4:35 AM FINDINGS: Lungs: Unremarkable. No consolidation. Pleural spaces: Unremarkable. No pleural effusion. No pneumothorax. Heart/Mediastinum: Unremarkable. No cardiomegaly. Bones/joints: Moderate degenerative changes throughout the thoracic spine. No acute fracture. IMPRESSION: No acute disease Dictated and Authenticated by: Hiren Novak MD. Ordering:LillyJOSE MANUEL Vale MD
[2023-11-17 20:26] LABS: ALT 75 U/L (16-63); AST 54 U/L (15-37); Albumin 4.2 g/dL (3.4-5.0); Alkaline Phosphatase 104 U/L (46-116); Anion Gap 11.2 mmol/L (3-11); BUN 13 mg/dL (7-18); Bilirubin, Total 0.4 mg/dL (0.2-1.0); CO2 25.8 mmol/L (21.0-32.0); CREATININE 0.9 mg/dL (0.70-1.30); Calcium 9.2 mg/dL (8.5-10.1); Chloride 100 mmol/L (98-107); Estimated GFR 89.07 (mL/min/1.73m2); Glucose 100 mg/dL (74-106); Magnesium 2.3 mg/dL (1.8-2.4); NT-proBNP 470 pg/mL (<300); Potassium 3.9 mmol/L (3.5-5.1); Sodium 137 mmol/L (136-145); Total Protein 7.6 g/dL (6.4-8.2); Troponin I < 50 ng/L (< or =60)
[2023-11-17 20:29] LABS: D-Dimer 753 ng/mlFEU (<500)
--- NOTE | 2023-11-17 22:42 | ED.GENADUL_ITS ---
Discharge Plan Disposition Patient Disposition: Home Condition: Stable Discharge Details Clinical Impression: Chest pain Primary Care Provider: Francisco Espino ED Provider: Ivette Hunt Home Meds and New Rx's Prescriptions: No Action lamotrigine 200 mg tablet 200 mg PO DAILY Qty: 90 1RF Rx Instructions: Take with 100mg for a total of 300mg daily lamotrigine 100 mg tablet 100 mg PO DAILY Qty: 90 1RF Rx Instructions: Take with 200mg for a total of 300mg daily valsartan 40 mg tablet 40 mg PO DAILY Qty: 90 4RF pantoprazole 40 mg tablet,delayed release (DR/EC) 40 mg PO DAILY Qty: 90 4RF atorvastatin 80 mg tablet 80 mg PO DAILY Qty: 90 4RF clopidogrel 75 mg tablet 75 mg PO DAILY Patient Comments: TAKE ONE TABLET BY MOUTH EVERY DAY aspirin 81 mg capsule 81 mg PO DAILY Discharge Instructions Instructions: Chest Pain (ED) Additional Instructions: please monitor your symptoms, keep log of blood pressure and follow up with your rate clerk passenger or PCP. HPI General Date/Time Provider Initiated Documentation: 11/17/23 19:29 . Limitations to Documentation: no limitations . Information obtained by: patient . HPI Narrative: 73-year-old gentleman with past medical history of heart disease with 1 stent, hypertension, colon cancer presents for evaluation of chest discomfort. He reports that the symptoms have been ongoing all day. He denies pain or radiation. He says it is just a discomfort. He is unable to rated on a scale. He reports that he has had a very stressful weekend due to a snowstorm. He reports a history of high blood pressure but reports compliance with this medication. He does take aspirin and Plavix daily. He denies any significant shortness of breath, denies nausea, diaphoresis. Denies any exertional component to his chest pain. Related Data Home Medications Medication Instructions Recorded Confirmed lamotrigine 100 mg tablet 100 mg PO DAILY #90 tabs 05/16/23 11/17/23 lamotrigine 200 mg tablet 200 mg PO DAILY #90 tabs 05/16/23 11/17/23 valsartan 40 mg tablet 40 mg PO DAILY #90 tabs 07/18/23 11/17/23 pantoprazole 40 mg tablet,delayed 40 mg PO DAILY #90 tabs 09/10/23 11/17/23 release atorvastatin 80 mg tablet 80 mg PO DAILY #90 tabs 09/23/23 11/17/23 aspirin 81 mg capsule 81 mg PO DAILY 11/17/23 11/17/23 clopidogrel 75 mg tablet 75 mg PO DAILY 11/17/23 11/17/23 Previous Rx's Medication Instructions Recorded lamotrigine 100 mg tablet 100 mg PO DAILY #90 tabs 05/16/23 lamotrigine 200 mg tablet 200 mg PO DAILY #90 tabs 05/16/23 valsartan 40 mg tablet 40 mg PO DAILY #90 tabs 07/18/23 pantoprazole 40 mg tablet,delayed 40 mg PO DAILY #90 tabs 09/10/23 release atorvastatin 80 mg tablet 80 mg PO DAILY #90 tabs 09/23/23 Allergies Allergy/AdvReac Type Severity Reaction Status Date / Time No Known Allergies Allergy Verified 11/17/23 19:30 General Stated Complaint: Chest Pain MAURA: 3 Exam Narrative Exam Narrative: Review of Systems: All systems reviewed & are unremarkable except as noted in HPI and below Well-developed, no acute distress NCAT PERRL, normal conjunctiva RRR Unlabored respiratory effort Nondistended abdomen Extremities w/o deformity, no cyanosis, no edema No rashes or lesions. no focal neurologic deficits Appropriate mood and affect Course Vital Signs Vital signs: Vital Signs Pulse 73 11/17/23 19:29 Respiratory Rate 18 11/17/23 19:29 Blood Pressure 211/93 H 11/17/23 19:29 Pulse Oximetry 100 11/17/23 19:29 Pulse 52 L 11/17/23 22:01 Pulse 57 L 11/17/23 22:01 Respiratory Rate 15 11/17/23 22:01 Respiratory Effort Short of Breath 11/17/23 19:31 Blood Pressure 126/69 11/17/23 22:01 Blood Pressure Mean 88 11/17/23 22:01 Blood Pressure Position Sitting 11/17/23 19:29 Pulse Oximetry 100 11/17/23 19:29 Oxygen Delivery Method Room Air 11/17/23 19:29 Oxygen Flow Rate 0 11/17/23 19:29 Lab/Test Results Lab/Test Results: Laboratory Tests Range/Units 11/17/23 19:45 WBC (4.4-10.8) 10^3/uL 5.49 RBC (4.36-5.78) 10^6/uL 4.33 L Hgb (13.5-17.5) g/dL 14.4 Hct (40.0-50.0) % 40.8 MCV (80-95) fL 94 MCH (27.0-33.0) pg 33.3 H MCHC (32.0-36.0) % 35.3 RDW (11.8-14.1) % 11.7 L Plt Count (130-400) 10^3/uL 225 MPV (8.0-11.0) fL 9.1 Immature Gran % 0.2 Neutrophils % 57.1 Lymphocytes % 28.1 Monocytes % 11.5 Eosinophils % 2.6 Basophils % 0.5 Nucleated RBC % (0.0-0.3) % 0.0 Absolute Neutrophils (1.2-6.7) 10^3/uL 3.14 Absolute Lymphocytes (1.2-3.4) 10^3/uL 1.54 Absolute Monocytes (0.1-0.8) 10^3/uL 0.63 Absolute Eosinophils (0.0-0.7) 10^3/uL 0.14 Absolute Basophils (0.0-0.2) 10^3/uL 0.03 D-Dimer (<500) ng/mlFEU 753 H Sodium (136-145) mmol/L 137 Potassium (3.5-5.1) mmol/L 3.9 Chloride (98-107) mmol/L 100 Carbon Dioxide (21.0-32.0) mmol/L 25.8 Anion Gap (3-11) mmol/L 11.2 H BUN (7-18) mg/dL 13 Creatinine (0.70-1.30) mg/dL 0.9 Est GFR (CKD-EPI 2020) (mL/min/1.73m2) 89.07 Glucose (74-106) mg/dL 100 Calcium (8.5-10.1) mg/dL 9.2 Magnesium (1.8-2.4) mg/dL 2.3 Total Bilirubin (0.2-1.0) mg/dL 0.4 AST (15-37) U/L 54 H ALT (16-63) U/L 75 H Alkaline Phosphatase (46-116) U/L 104 Troponin I (< or =60) ng/L < 50 NT-Pro-B Natriuret Pep (<300) pg/mL 470 H Total Protein (6.4-8.2) g/dL 7.6 Albumin (3.4-5.0) g/dL 4.2 Medical Decision Making Emergent evaluation of chest pain. Patient initial EKG is not acutely ischemic. He does have history of stent. Unable to really describe the chest pain, but just states that he does not feel well he can want to take any chances. He reports compliance with this medication. Initial differential includes ACS, NSTEMI, musculoskeletal pain. I have reviewed his medical record and noted that he does have ischemic cardiomyopathy with poor EF around 30%. He was told to stop the Plavix in August. Aspirin given, nitro given, will check lab work 2000 Lab work reviewed. No leukocytosis or significant anemia. D-dimer elevated within the age-adjusted cut off. BNP slightly elevated no priors for comparison. Given patient's risk factors I would like him to stay in the hospital for further serial troponins and stress testing. However the patient declines this. He does not want to be admitted to the hospital. He understands risks and benefits of not being evaluated. The patient will agree to stay for the second troponin. Medical Records Medical records reviewed: Yes I reviewed the patient's medical records. Lab Data Lab results reviewed: Yes I reviewed the patient's lab results. Quality:SDOH Health Related Social Needs: No Data to Display PFSH All Active Problems (Updated 11/17/23 @ 22:55 by Ivette Hunt MD) Chest pain (Acute) Olecranon bursitis, left elbow (Acute) Decreased hearing of both ears (Acute) Myocardial infarct (Chronic) 99% occlusion RCA, stent placed 09/19/22, treated at [facility] [place] Palpitations (Acute) Heart block AV first degree (Acute) Noted during ETT 10/2021 Sacral fracture (Acute) Anxiety and depression (Chronic) Chest pain due to psychological stress (Acute) Annual physical exam (Acute) Actinic keratosis (Chronic) Benign appearance - see photo 07/2020 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 RANDHAWA SHERINE (obstructive sleep apnea) (Chronic) HTN (hypertension) (Chronic) Affective bipolar disorder (Acute) Vertigo (Acute) Medical History Paronychia of left thumb Complicated laceration of hand Anemia Neutropenia Colon cancer Surgical History S/P herniorrhaphy (~1991) RIGHT ING. History of partial colectomy (~03/2003) Family History Mother , 81 Hypertension Stroke Father , age 89 Colon cancer Sister No problems noted. Sister No problems noted. Sister Depression Heart disease Brother No problems noted. Son No problems noted. Son No problems noted. Daughter No problems noted. Maternal Grandfather , age 68 Lung cancer Paternal Grandfather , age 80 No problems noted. Maternal Grandmother , age 88 No problems noted. Paternal Grandmother , age 40 No problems noted. Social History Smoking/Tobacco Use Status: Never Second Hand Exposure: Yes Smoking risk assessment performed?: Yes Alcohol Intake: current Alcohol Intake frequency: a few times a month Alcohol type: hard liquor Drug use: Daily Substance use type: marijuana Counseling given: No Counseling provided: none Adopted: No Caregiver/Support person: No Foster care: No Housing: house Communication Needs: Hard of Hearing and Corrective Lenses Education Level: high school Do you need help understanding health information?: Often current occupation: self employed Pets and animals: No Sexually active: No Do you think of yourself as: straight/heterosexual Current gender identity: male What is your relationship status?: How often do you talk on the phone with friends or family?: decline to answer How often do you get together with friends or relatives?: decline to answer How often do you attend buddhist or yarsani services?: decline to answer Do you belong to any clubs or organized social groups?: no Panel score (0-1 are the most socially isolated patients): 0 What type of physical activity do you participate in: walking, bicycling and other Details: X-Cross bike; cross country skiing Duration: 60-90 minutes/day Frequency: daily Jamee/Amish: No preference Seatbelt use: sometimes Helmet use: Yes Helmet use: always Drive intox or ride w/intox pile driver: No Working smoke detector in home: Yes Carbon monox detector in home: Yes Do you feel safe at home: Yes Do you feel safe in your relationship?: Yes Victim of physical abuse: No Victim of emotional abuse: No Victim of sexual abuse: No Sign Out Sign Out Data: Sign Out Comment: 73-year-old gentleman with history of STEMI and stents. Presenting with chest discomfort, no chest pain. Symptoms resolved after aspirin and nitro in the ED. EKG not acutely ischemic. First Trope negative. Given risk factors, offered admission to the patient but he declines. He has the capacity to make this decision. He did agree to stay for second Trope. Plan for second troponin if negative can discharge home. If positive will need further care. Last updated by Ivette Hunt MD at 11/17/23 23:33
[2023-11-17 23:34] LABS: Troponin I < 50 ng/L (< or =60)
--- NOTE | 2023-11-17 23:37 | ED.PROG_ITS ---
Date of service: 11/17/23 Time of Service: 23:37 Medical Decision Making This patient was signed out to me. Please see previous notes for H&P and initial eval. In brief, 73yo M with prior ID, CAD, HTN, CHF, presenting for chest pain. EKG and labs reassuring, initial troponin negative. Dimer appropriate for age and prior physician with low suspicion for pulmonary embolism. With age and risk factors higher risk for ACS despite reassuring initial workup; ideally patient would stay overnight for observation however he refused this and strongly prefers to go home. Plan made with offgoing physician for repeat troponin, discharge home if negative. Patient was reportedly amenable to staying of the troponin is positive. Delta trop negative. Patient chest pain free at this time. I again offered observation/admission and he declined, would prefer to go home and followup up outpatient which is a reasonable alternative plan. Discharged home; discharge instructions and return precautions were reviewed with patient who verbalized understanding. All questions were answered and he is in full agreement with the plan. Lab Data Lab results reviewed: Yes I reviewed the patient's lab results. Quality:[facility] Health Related Social Needs: No Data to Display Sign Out Sign Out Data: Sign Out Comment: 73-year-old gentleman with history of STEMI and stents. Presenting with chest discomfort, no chest pain. Symptoms resolved after aspirin and nitro in the ED. EKG not acutely ischemic. First Trope negative. Given risk factors, offered admission to the patient but he declines. He has the capacity to make this decision. He did agree to stay for second Trope. Plan for second troponin if negative can discharge home. If positive will need further care. Last updated by Ivette Hunt MD at 11/17/23 23:33 Discharge Plan Disposition Patient Disposition: Home Condition: Stable Discharge Details Clinical Impression: Chest pain Primary Care Provider: Francisco Espino ED Provider: Sofia Patel Home Meds and New Rx's Prescriptions: Continued lamotrigine 200 mg tablet 200 mg PO DAILY Qty: 90 1RF Rx Instructions: Take with 100mg for a total of 300mg daily lamotrigine 100 mg tablet 100 mg PO DAILY Qty: 90 1RF Rx Instructions: Take with 200mg for a total of 300mg daily valsartan 40 mg tablet 40 mg PO DAILY Qty: 90 4RF pantoprazole 40 mg tablet,delayed release (DR/EC) 40 mg PO DAILY Qty: 90 4RF atorvastatin 80 mg tablet 80 mg PO DAILY Qty: 90 4RF clopidogrel 75 mg tablet 75 mg PO DAILY Patient Comments: TAKE ONE TABLET BY MOUTH EVERY DAY aspirin 81 mg capsule 81 mg PO DAILY Discharge Instructions Instructions: Chest Pain (ED) Additional Instructions: please monitor your symptoms, keep log of blood pressure and follow up with your deportation examiner or PCP. call your deportation examiner tomorrow to schedule an appointment REBECCA (ideally within 48 hours) to follow up on your visit today. Return to the emergency department for new or worsening symptoms including if your pain returns, you have difficulty breathing, feel like you are going to pass out, or if you have any other concerns.
[2023-11-18 00:04] VITALS: BP 146/79; PULSE 54; RESP 16; RESP 17; O2SAT 98
== END 2023-11-18 00:04 | disposition home or self-care (01) ==
PROVIDERS: Emergency Medicine; Emergency Provider Student in an Organized Health Care Education/Training Program; PCP Nurse Practitioner Family
DX: R07.9 Chest pain, unspecified (principal); R06.02 Shortness of breath; I25.10 Atherosclerotic heart disease of native coronary artery without angina pectoris; I25.2 Old myocardial infarction; I11.0 Hypertensive heart disease with heart failure; I50.9 Heart failure, unspecified; R94.31 Abnormal electrocardiogram [ECG] [EKG]; Z79.02 Long term (current) use of antithrombotics/antiplatelets; Z79.82 Long term (current) use of aspirin; Z95.2 Presence of prosthetic heart valve
CPT/HCPCS: 00123; 80053; 93005; 99285; 71045; 83735; 83880; 84484; 85025; 85379; 93010; 99284

== ENCOUNTER 2023-11-20 10:45 | Outpatient (CLI) | payer MEDICARE, BC, SELFPAY ==
--- NOTE | 2023-11-20 10:45 | RT.EKG_ITS ---
APPROVED REPORT Exam: Resting ECG Reason for Exam: chest pain Patient Location: O HR:75 bpm ECG Measurements Heart Rate 75 AXIS MN 181 P 30 QRSd 92 QRS -6 QT 377 T 51 QTc 421 Conclusion Sinus rhythm...normal P axis, V-rate 50- 99 Inferior infarct, old...Q >35mS, II III aVF
== END 2023-11-20 10:46 | disposition home or self-care (01) ==
LOC: DI.CM 10:46
PROVIDERS: PCP Nurse Practitioner Family; Visit Provider Nurse Practitioner Family
DX: R07.9 Chest pain, unspecified (principal)
CPT/HCPCS: 93010

== ENCOUNTER 2023-11-21 10:07 | Emergency (ER) | payer MEDICARE, BC, SELFPAY ==
[2023-11-21] VITALS (44 sets, daily range): BP systolic 96–167; BP diastolic 60–104; PULSE 52–92; RESP 12–24; TEMP 37; O2SAT 99
--- NOTE | 2023-11-21 10:00 | RT.EKG_ITS ---
APPROVED REPORT Exam: Resting ECG Reason for Exam: Chest pain Patient Location: E HR:63 bpm ECG Measurements Heart Rate 63 AXIS KS 186 P 38 QRSd 94 QRS -11 QT 416 T 47 QTc 427 Conclusion Sinus rhythm.. 63 normal axis no stemi
[2023-11-21 10:26] LABS: Abs Immature Grans 0.01 10^3/uL (0.0-0.06); Absolute Basophil Count 0.04 10^3/uL (0.0-0.2); Absolute Eosinophil Count 0.08 10^3/uL (0.0-0.7); Absolute Lymphocyte Count 1.23 10^3/uL (1.2-3.4); Absolute Monocyte Count 0.49 10^3/uL (0.1-0.8); Absolute Neutrophil Count 3.35 10^3/uL (1.2-6.7); Basophils % 0.8; Eosinophils % 1.5; HCT 36.2 % (40.0-50.0); HGB 13.1 g/dL (13.5-17.5); Immature Grans % 0.2; Lymphocytes % 23.7; MCH 33.1 pg (27.0-33.0); MCHC 36.2 % (32.0-36.0); MCV 91 fL (80-95); MPV 9.3 fL (8.0-11.0); Monocytes % 9.4; Neutrophils % 64.4; Platelet Count 215 10^3/uL (130-400); RBC 3.96 10^6/uL (4.36-5.78); RDW 11.8 % (11.8-14.1); RDW-SD 39.1 fL
[2023-11-21 10:37] LABS: INR 1.1 (0.9-1.1); Prothrombin Time 10.7 sec (9.1-11.1)
--- NOTE | 2023-11-21 10:37 | ED.GENADUL_ITS ---
Discharge Plan Discharge Details Chief Complaint: Chest Pain Primary Care Provider: Francisco Espino ED Provider: Ivette Hunt Home Meds and New Rx's Prescriptions: No Action nitroglycerin 0.4 mg tablet, sublingual 0.4 mg sublingual Q5M PRN (Reason: chest pain) Qty: 14 0RF Rx Instructions: Take 1 tab at onset of symptoms, repeat every 5 minutes x 3 doses if chest pain persists lamotrigine 200 mg tablet 400 mg PO DAILY Qty: 180 1RF Rx Instructions: dose increase valsartan 40 mg tablet 40 mg PO DAILY Qty: 90 4RF pantoprazole 40 mg tablet,delayed release (DR/EC) 40 mg PO DAILY Qty: 90 4RF atorvastatin 80 mg tablet 80 mg PO DAILY Qty: 90 4RF aspirin 81 mg capsule 81 mg PO DAILY HPI General Date/Time Provider Initiated Documentation: 11/21/23 10:17 . Limitations to Documentation: no limitations . Information obtained by: patient . HPI Narrative: 73-year-old gentleman with past medical history of STEMI, 1 stent placed, cardiomyopathy, hypertension presents for evaluation of chest pressure. Reports onset this morning while at work. 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 He reports a twinge in the left side of his chest. Pressure is enough to make him feel short of breath . He states that it has been 3 hours since he was in the stressful situation and so he says that his symptoms have improved. Was given aspirin and nitroglycerin by EMS and does not report significant improvement with nitro. He has been to the emergency department once this week and saw urgent care as well. Related Data Home Medications Medication Instructions Recorded Confirmed valsartan 40 mg tablet 40 mg PO DAILY #90 tabs 07/18/23 11/21/23 pantoprazole 40 mg tablet,delayed 40 mg PO DAILY #90 tabs 09/10/23 11/21/23 release atorvastatin 80 mg tablet 80 mg PO DAILY #90 tabs 09/23/23 11/21/23 aspirin 81 mg capsule 81 mg PO DAILY 11/17/23 11/21/23 lamotrigine 200 mg tablet 400 mg (2 x 200 mg) PO DAILY #180 11/20/23 11/21/23 tabs nitroglycerin 0.4 mg sublingual 0.4 mg sublingual Q5M PRN chest 11/20/23 11/21/23 tablet pain #14 tabs Previous Rx's Medication Instructions Recorded valsartan 40 mg tablet 40 mg PO DAILY #90 tabs 07/18/23 pantoprazole 40 mg tablet,delayed 40 mg PO DAILY #90 tabs 09/10/23 release atorvastatin 80 mg tablet 80 mg PO DAILY #90 tabs 09/23/23 lamotrigine 200 mg tablet 400 mg (2 x 200 mg) PO DAILY #180 11/20/23 tabs nitroglycerin 0.4 mg sublingual 0.4 mg sublingual Q5M PRN chest 11/20/23 tablet pain #14 tabs Allergies Allergy/AdvReac Type Severity Reaction Status Date / Time No Known Allergies Allergy Verified 11/21/23 10:46 General Stated Complaint: Chest Pain MAURA: 2 Exam Narrative Exam Narrative: Review of Systems: All systems reviewed & are unremarkable except as noted in HPI and below Well-developed, no acute distress NCAT PERRL, normal conjunctiva RRR, no murmur Unlabored respiratory effort, clear bilaterally Nondistended abdomen , nontender Extremities w/o deformity, no cyanosis, no edema No rashes or lesions. no focal neurologic deficits Appropriate mood and affect Course Vital Signs Vital signs: Vital Signs Temperature 37.0 C 11/21/23 10:05 Pulse 66 11/21/23 10:05 Respiratory Rate 16 11/21/23 10:05 Blood Pressure 165/86 H 11/21/23 10:05 Pulse Oximetry 99 11/21/23 10:05 Temperature 37.0 C 11/21/23 10:05 Temperature Source Temporal Artery Scan 11/21/23 10:05 Pulse 63 11/21/23 10:16 Pulse 60 11/21/23 10:20 Respiratory Rate 14 11/21/23 10:20 Respiratory Effort Normal 11/21/23 10:17 Respiratory Depth Normal 11/21/23 10:17 Respiratory Pattern Normal 11/21/23 10:17 Blood Pressure 151/82 H 11/21/23 10:16 Blood Pressure Mean 106 11/21/23 10:16 Blood Pressure Position Supine 11/21/23 10:05 Pulse Oximetry 99 11/21/23 10:05 Oxygen Delivery Method Room Air 11/21/23 10:05 Oxygen Flow Rate 0 11/21/23 10:05 Pain Level 0 11/21/23 10:17 Lab/Test Results Lab/Test Results: Laboratory Tests Range/Units 11/21/23 10:16 WBC (4.4-10.8) 10^3/uL 5.20 RBC (4.36-5.78) 10^6/uL 3.96 L Hgb (13.5-17.5) g/dL 13.1 L Hct (40.0-50.0) % 36.2 L MCV (80-95) fL 91 MCH (27.0-33.0) pg 33.1 H MCHC (32.0-36.0) % 36.2 H RDW (11.8-14.1) % 11.8 Plt Count (130-400) 10^3/uL 215 MPV (8.0-11.0) fL 9.3 Immature Gran % 0.2 Neutrophils % 64.4 Lymphocytes % 23.7 Monocytes % 9.4 Eosinophils % 1.5 Basophils % 0.8 Nucleated RBC % (0.0-0.3) % 0.0 Absolute Neutrophils (1.2-6.7) 10^3/uL 3.35 Absolute Lymphocytes (1.2-3.4) 10^3/uL 1.23 Absolute Monocytes (0.1-0.8) 10^3/uL 0.49 Absolute Eosinophils (0.0-0.7) 10^3/uL 0.08 Absolute Basophils (0.0-0.2) 10^3/uL 0.04 Medical Decision Making Emergent evaluation of chest pressure. Patient has significant cardiac history and has already been evaluated previously this week, I saw him on Friday and wanted to admit the patient, but he made the decision to leave the hospital after 2 troponins. The patient again does not want to stay in the hospital, but I asked him to seriously reconsider this given his recurrent chest pain and high risk factors. He reports very mild pressure at this time. Will give another dose of nitroglycerin. Has already received full dose aspirin. EKG without acute ischemic change. Will check labs including cardiac biomarkers. 1300 Lab work reviewed. First troponin is negative. Discussed with shrimp peeling machine tender, she does recommend stress testing given his risk factors. However stress testing will not be performed over the weekend. I discussed this with the patient and he does not want to be hospitalized throughout the weekend. He is requesting to go come back for the stress testing. He agrees to stay for the se cond troponin. The second troponin will be drawn and if remains negative, patient will be discharged home. I was able to schedule a stress test for him on Friday. Medical Records Medical records reviewed: Yes I reviewed the patient's medical records. Lab Data Lab results reviewed: Yes I reviewed the patient's lab results. ECG Data Attestation: I personally reviewed and interpreted this ECG (s) as follows: Prior ECG tracings: available for review Interpretation: Sinus 63 normal axis no STEMI Quality:SDOH Health Related Social Needs: No Data to Display [facility] All Active Problems Chest pain (Acute) Olecranon bursitis, left elbow (Acute) Decreased hearing of both ears (Acute) Myocardial infarct (Chronic) 99% occlusion RCA, stent placed 09/19/22, [place] [facility] [place] Palpitations (Acute) Heart block AV first degree (Acute) Noted during ETT 10/2021 Sacral fracture (Acute) Anxiety and depression (Chronic) Chest pain due to psychological stress (Acute) Annual physical exam (Acute) Actinic keratosis (Chronic) Benign appearance - see photo 07/2020 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 RANDHA[place] SHERINE (obstructive sleep apnea) (Chronic) HTN (hypertension) (Chronic) Affective bipolar disorder (Acute) Vertigo (Acute) Medical History Paronychia of left thumb Complicated laceration of hand Anemia Neutropenia Colon cancer Surgical History S/P herniorrhaphy (~1991) RIGHT ING. History of partial colectomy (~03/2003) Family History Mother , 81 Hypertension Stroke Father , age 89 Colon cancer Sister No problems noted. Sister No problems noted. Sister Depression Heart disease Brother No problems noted. Son No problems noted. Son No problems noted. Daughter No problems noted. Maternal Grandfather , age 68 Lung cancer Paternal Grandfather , age 80 No problems noted. Maternal Grandmother , age 88 No problems noted. Paternal Grandmother , age 40 No problems noted. Social History Smoking/Tobacco Use Status: Never Second Hand Exposure: Yes Smoking risk assessment performed?: Yes Alcohol Intake: current Alcohol Intake frequency: a few times a month Alcohol type: hard liquor Drug use: Daily Substance use type: marijuana Counseling given: No Counseling provided: none Adopted: No Caregiver/Support person: No Foster care: No Housing: house Communication Needs: Hard of Hearing and Corrective Lenses Education Level: high school Do you need help understanding health information?: Often current occupation: self employed Pets and animals: No Sexually active: No Do you think of yourself as: straight/heterosexual Current gender identity: male What is your relationship status?: How often do you talk on the phone with friends or family?: decline to answer How often do you get together with friends or relatives?: decline to answer How often do you attend taoist or christian services?: decline to answer Do you belong to any clubs or organized social groups?: no Panel score (0-1 are the most socially isolated patients): 0 What type of physical activity do you participate in: walking, bicycling and other Details: X-Cross bike; cross country skiing Duration: 60-90 minutes/day Frequency: daily Jamee/Temple: No preference Seatbelt use: sometimes Helmet use: Yes Helmet use: always Drive intox or ride w/intox freight delivery driver: No Working smoke detector in home: Yes Carbon monox detector in home: Yes Do you feel safe at home: Yes Do you feel safe in your relationship?: Yes Victim of physical abuse: No Victim of emotional abuse: No Victim of sexual abuse: No
[2023-11-21 11:05] LABS: ALT 63 U/L (16-63); AST 45 U/L (15-37); Albumin 3.6 g/dL (3.4-5.0); Alkaline Phosphatase 92 U/L (46-116); BUN 16 mg/dL (7-18); Bilirubin, Total 0.5 mg/dL (0.2-1.0); Calcium 8.8 mg/dL (8.5-10.1); Chloride 103 mmol/L (98-107); Estimated GFR 78.49 (mL/min/1.73m2); Glucose 129 mg/dL (74-106); Potassium 3.6 mmol/L (3.5-5.1); Sodium 138 mmol/L (136-145); Total Protein 6.6 g/dL (6.4-8.2); Troponin I < 50 ng/L (< or =60)
[2023-11-21 11:07] LABS: NT-proBNP 429 pg/mL (<300)
[2023-11-21 13:35] LABS: Troponin I < 50 ng/L (< or =60)
== END 2023-11-21 14:00 | disposition home or self-care (01) ==
PROVIDERS: Emergency Provider Emergency Medicine; PCP Nurse Practitioner Family
DX: R07.89 Other chest pain (principal); R42 Dizziness and giddiness; R06.02 Shortness of breath; I25.2 Old myocardial infarction; I10 Essential (primary) hypertension; Z95.5 Presence of coronary angioplasty implant and graft; Z79.82 Long term (current) use of aspirin
CPT/HCPCS: 80053; 93005; 99283; 83880; 84484; 85025; 85610; 93010

== ENCOUNTER → 2023-11-24 01:12 | Outpatient (CLI) | payer MEDICARE, BC, SELFPAY ==
--- NOTE | 2023-11-24 | DI.NM_ITS ---
APPROVED REPORT Exam: Pharmacologic Patient Location: Out-Patient Room/Bed: Stress Nurse: Chanel Robin RN Ordering Provider:NOBLE ARMANDO, Contact Number: [phone] BMI: 26.15 Baseline Rhythm: Sinus Bradycardia Indications: Chest pain Medical History Medical History: STEMI, cardiomyopathy, HTN, anxiety, depression, ED, colon CA, SHERINE, affective bipola r disorder, CP with psychological distress Cardiac Medications: Valsartan, atorvastatin, Aspirin, nitro Allergies: NKA Cardiac Risk Factors: Family Hx, HTN, HLD, CVD Previous Cardiac Procedures: PCI Pretest Chest Pain Characteristics: None Exercise History: Sedentary Physical Disabilities: None Lung Sounds: Clear to auscultation Heart Sounds: Regular Stress Test Details Test: Pharmacologic stress was paired with low level exercise. Nuclear Acquisition: Rest Tc-99m/Stress Tc-99m 1 day Rest Isotope: Tc-99m Sestamibi. Dose: 10.1 Date: 11/24/2023 Injection Time: 1055 Stress Isotope: Tc-99m Sestamibi. Dose: 33 Date: 11/24/2023 Injection Time: 1235 HR Resting HR Supine: 55 bpm Max Heart Rate (APMHR): 145.868080 bpm Resting HR Standin bpm Target HR (85% APMHR): 123.622023 bpm Max HR Achieved: 120 bpm % of APMHR: 82.76 Recovery HR: 72 bpm BP Resting BP Supine: 164/82 mmHg Resting BP Standin/70 mmHg Max BP: 170/72 mmHg Recovery BP: 160/78 mmHg ECG Resting ECG: Sinus Bradycardia Ectopy: none Stress ECG: Sinus Rhythm, Sinus Tachycardia ST Change: No significant ST segment changes noted Arrhythmia: None Recovery ECG: Sinus Rhythm Recovery ST Change: No significant ST segment changes noted Recovery Arrhythmia: VPC Clinical Rate Pressure Product: [id number] Stress ECG Conclusion 1. Resting electrocardiogram showed an old inferior infarct 2. Patient underwent testing using pharmacologic stress with regadenoson 3. Peak heart rate achieved was 83% of predicted for age 4. The electrocardiographic portion of the test was nodiagnostic 5. See MPI report Stress Test Summary STAGE HR BP SpO2 Symptoms NOTES Supine 55 164/82 96 Standing 59 160/70 96 1 min post Lexiscan injection 115 170/72 96 3 min post Lexiscan injection 90 162/80 96 6 min post Lexiscan injection 72 160/78 96 MPI Conclusion Myocardial perfusion is abnormal. There is an infarction of the inferior wall minimal superimposed i schemia EF 50% inferior wall motion abnormality Radiologist Interpretation Radiologist Interpretation by: Bryn Steward MD Interpretation Date/Time: 11/24/2023 16:52:37
[2023-11-24] MEDS: Regadenoson 0.4 MG/5 ML SYR IVP (12:36)
== END ==
PROVIDERS: PCP Nurse Practitioner Family; Visit Provider Emergency Medicine
DX: R07.9 Chest pain, unspecified (principal)
CPT/HCPCS: 78452; 93016; 93018; 93017; J2785

== ENCOUNTER 2024-09-14 11:30 | Emergency (ER) | payer MEDICARE, BC, SELFPAY ==
[2024-09-14] VITALS (22 sets, daily range): BP systolic 108–166; BP diastolic 61–89; PULSE 81–108; RESP 11–21; TEMP 36.8; O2SAT 92–100
--- NOTE | 2024-09-14 11:30 | RT.EKG_ITS ---
APPROVED REPORT Exam: Resting ECG Reason for Exam: Chest Pain Patient Location: E HR:101 bpm ECG Measurements Heart Rate 101 AXIS NV 172 P 25 QRSd 89 QRS -13 QT 342 T 150 QTc 443 Conclusion Sinus tachycardia, rate 101 No interval abnormalities Q waves II, III, aVF, consistent with old MO No STEMI No significant changes from priors
[2024-09-14 12:01] LABS: Abs Immature Grans 0.02 10^3/uL (0.0-0.06); Absolute Basophil Count 0.03 10^3/uL (0.0-0.2); Absolute Lymphocyte Count 0.46 10^3/uL (1.2-3.4); Absolute Monocyte Count 0.37 10^3/uL (0.1-0.8); Absolute Neutrophil Count 7.17 10^3/uL (1.2-6.7); Basophils % 0.4 %; HCT 44.1 % (40.0-50.0); HGB 15.3 g/dL (13.5-17.5); Immature Grans % 0.2 %; Lymphocytes % 5.7 %; MCH 32.6 pg (27.0-33.0); MCHC 34.7 % (32.0-36.0); MCV 94 fL (80-95); MPV 9.1 fL (8.0-11.0); Monocytes % 4.6 %; Neutrophils % 89.1 %; Platelet Count 194 10^3/uL (130-400); RDW 11.3 % (11.8-14.1); RDW-SD 38.8 fL; WBC 8.05 10^3/uL (4.4-10.8)
[2024-09-14 12:15] LABS: ALT 48 U/L (16-63); AST 49 U/L (15-37); Albumin 3.9 g/dL (3.4-5.0); Alkaline Phosphatase 82 U/L (46-116); Anion Gap 10.2 mmol/L (3-11); BUN 19 mg/dL (7-18); Bilirubin, Total 0.98 mg/dL (0.2-1.0); CO2 27.8 mmol/L (21.0-32.0); CREATININE 1.2 mg/dL (0.70-1.30); Chloride 104 mmol/L (98-107); Estimated GFR 62.67 (mL/min/1.73m2); Glucose 105 mg/dL (74-106); Lipase 20 U/L (<78); Magnesium 1.7 mg/dL (1.8-2.4); Potassium 4.2 mmol/L (3.5-5.1); Sodium 142 mmol/L (136-145); Total Protein 7.2 g/dL (6.4-8.2); Troponin I 13 ng/L (<or=76)
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
--- NOTE | 2024-09-14 12:58 | DI.RAD_ITS ---
Exam(s) XR CHEST 2V PA LATERAL EXAM: XR CHEST 2V PA LATERAL CLINICAL HISTORY: Vomiting, tearing CP, eval aorta, borhaaves. TECHNIQUE: 2D digital imaging was performed. COMPARISON: CR,XR XR PORTABLE CHEST AP from 11/17/2023 FINDINGS: 2 views: Heart size is normal. The mediastinum is not widened. There is subsegmental platelike atelectasis in both lung bases. No pleural effusions. IMPRESSION: Platelike atelectasis in both lung bases. DATA REPOSITORY: RADIATION DOSE DELIVERED:
[2024-09-14 13:22] LABS: Troponin I 14 ng/L (<or=76)
== END 2024-09-14 14:03 | disposition home or self-care (01) ==
PROVIDERS: Emergency Provider Emergency Medicine; PCP Nurse Practitioner Family
DX: R07.9 Chest pain, unspecified (principal); R11.2 Nausea with vomiting, unspecified; I25.10 Atherosclerotic heart disease of native coronary artery without angina pectoris; I25.2 Old myocardial infarction; I10 Essential (primary) hypertension; R00.0 Tachycardia, unspecified; Z79.82 Long term (current) use of aspirin
CPT/HCPCS: 36415; 80053; 83690; 93005; 99285; 71046; 83735; 84484; 85025; 93010; 99284

== ENCOUNTER 2024-10-26 03:00 | Outpatient (CLI) | payer MEDICARE, BC, SELFPAY ==
[2024-10-26 07:24] LABS: HCT 40.3 % (40.0-50.0); HGB 13.6 g/dL (13.5-17.5); MCH 32.3 pg (27.0-33.0); MCHC 33.7 % (32.0-36.0); MCV 96 fL (80-95); MPV 9.1 fL (8.0-11.0); Platelet Count 178 10^3/uL (130-400); RBC 4.21 10^6/uL (4.36-5.78); RDW-SD 41.5 fL; WBC 4.09 10^3/uL (4.4-10.8)
[2024-10-26 08:17] LABS: ALT 45 U/L (16-63); AST 40 U/L (15-37); Albumin 3.8 g/dL (3.4-5.0); Alkaline Phosphatase 98 U/L (46-116); Anion Gap 5.6 mmol/L (3-11); BUN 15 mg/dL (7-18); Bilirubin, Total 0.71 mg/dL (0.2-1.0); CO2 30.4 mmol/L (21.0-32.0); CREATININE 1.1 mg/dL (0.70-1.30); Calcium 9.2 mg/dL (8.5-10.1); Chloride 105 mmol/L (98-107); Cholesterol 113 mg/dL (<200); Estimated GFR 69.57 (mL/min/1.73m2); Glucose 99 mg/dL (74-106); HDL Cholesterol 65 mg/dL (>or=40); Potassium 4.4 mmol/L (3.5-5.1); Sodium 141 mmol/L (136-145); Total Protein 6.7 g/dL (6.4-8.2)
[2024-10-26 08:21] LABS: Triglyceride <25 mg/dL (<150)
[2024-10-26 08:31] LABS: LDL CHOLESTEROL 40 mg/dL (<100)
[2024-10-26 21:02] LABS: Hepatitis C Ab w Rflx HCV PCR Negative (Negative)
[2024-10-26 21:05] LABS: HBs Antibody, Quant <3.1 mIU/mL (See Note); HIV-1/2 Ag & Ab Screen Negative (Negative); Hep B Surface Ab Negative (See Note); Hepatitis B Core Antibody Negative (Negative); Hepatitis B Surface Antigen Negative (Negative)
== END 2024-10-26 03:01 | disposition home or self-care (01) ==
LOC: LBO 03:00
PROVIDERS: PCP Nurse Practitioner Family; Visit Provider Nurse Practitioner Family
DX: R00.2 Palpitations (principal); I25.10 Atherosclerotic heart disease of native coronary artery without angina pectoris; Z11.59 Encounter for screening for other viral diseases; Z11.4 Encounter for screening for human immunodeficiency virus [HIV]
CPT/HCPCS: 36415; 80053; 80061; 83721; 85027; 86704; 86706; 86803; 87340; 87389

== ENCOUNTER 2024-12-28 00:49 | Outpatient (CLI) | payer MEDICARE, BC, SELFPAY ==
--- NOTE | 2024-12-28 06:58 | DI.CT_ITS ---
Exam(s) CT ABDOMEN PELVIS W EXAM: CT ABDOMEN PELVIS W CLINICAL HISTORY: Abd craming, pain lower l,mid left, ? diverticulitis. TECHNIQUE: Imaging Protocol: Axial computed tomography images with coronal and sagittal reformatted images were created and reviewed CONTRAST MATERIAL: Intravenous: Omnipaque-350 75cc Oral: Yes. Oral contrast was also administered for bowel opacification. COMPARISON: CT CT SACRUM AND COCCYX WO from 11/01/2021 CT,NM,TMT NM MPI REST STRESS GRP from 11/24/2023 CR XR CHEST 2V PA LATERAL from 09/14/2024 FINDINGS: VISUALIZED LUNG BASES: Mild benign-appearing increased markings in both lower lobes. No pleural effu sions.. ABDOMEN: There is no ascites. The administered oral contrast has reached the mid transverse colon level. The re is a moderate size hiatal hernia noted. LIVER: There are no significant focal hepatic lesions evident. Tiny cysts or hemangiomas noted in mason perior aspect of the right hepatic lobe and another small cyst or hemangioma measuring less than 1 cm is noted peripherally in the right lobe of the liver. There are no dilated intrahepatic ducts. GALLBLADDER/BILIARY: No obvious gallbladder pathology. CBD is not dilated. PANCREAS: No evidence of pancreatic mass nor dilatation of the pancreatic duct. SPLEEN: Spleen size is upper normal. A few small hypodensities are noted in the spleen which are pro bably benign cysts measuring less than 1 cm each. Splenic and portal veins are patent. ADRENALS: There are no significant adrenal masses. KIDNEYS:No cysts evident. No solid renal masses. No calculi nor hydronephrosis.. ABDOMINAL AORTA: The abdominal aorta is calcified but not enlarged. Also no significant aneurysmal d ilatation of the iliac arteries. LYMPH NODES:There is no retroperitoneal nor paraaortic adenopathy. ABDOMINAL WALL: No evidence of significant anterior abdominal wall nor inguinal hernia. GI: There is no evidence of bowel obstruction, free air, nor abscess. PELVIS: GI: The cecum is mobile, being above the right iliac fossa. The appendix is not seen and may be surg ically absent. There is no evidence of appendicitis.No evidence of sigmoid diverticulitis. LYMPH NODES: There is no intrapelvic nor inguinal adenopathy. REPRODUCTIVE: Prostate size is mildly prominent. URINARY BLADDER: Urinary bladder is significantly distended and there is again noted a left-sided Hut ch diverticulum which measures 6.7 cm AP by 2.8 cm wide by 5.5 cm craniocaudal. The distended urinar y bladder measures 15.4 cm AP 13 cm wide by 11.5 cm craniocaudal. 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 There is also moderate disc space narrowing at this level. OSSEOUS: No fractures and no significant osseous lesions. Previously present sacral fracture has healed. IMPRESSION: 1. Significantly distended urinary bladder which measures 15.4 cm AP by 13 cm wide by 11.5 cm cranioc audal. There is also again noted a left-sided Hutch diverticulum measuring 6.7 x 2.8 x 5.5 cm. Ther e are no obvious masses nor calculi in the urinary bladder but prior findings are consistent with out let obstruction. The prostate gland is only mildly enlarged and only slightly indents the bladder ba se. 2. No evidence of appendicitis nor diverticulitis. No bowel obstruction. Mobile cecum noted and cec um is located above the right iliac fossa. 3. Other findings as above. 4. RADIATION DOSE DELIVERED: 423.56mGy.cm Total DLP DATA REPOSITORY: All CT scans at this facility are submitted to the National Radiology Data Registry (NRDR) Dose Index Registry (DIR) with the [employer] (ACR). RADIATION OPTIMIZATION: All CT scans at this facility use at least one of these dose optimization te chniques: automated exposure control; mA and/or kV adjustment per patient size (includes targeted exa ms where dose is matched to clinical indication); or iterative reconstruction.
[2024-12-28] MEDS: Barium Sulfate 2% W/V-Creamy Vanilla Smoothie 450 ML BTL PO (07:45)
[2024-12-28] MEDS: Barium Sulfate 2% W/V-Berry Smoothie 450 ML BTL PO (07:47)
[2024-12-28] MEDS: Normal Saline - Diluent 50 ML VIAL IJ (10:02)
[2024-12-28] MEDS: Omnipaque 350 MG/ML 100 ML BTL IJ (10:02)
== END 2024-12-28 01:09 ==
LOC: DI 00:50
PROVIDERS: PCP Nurse Practitioner Family; Visit Provider Nurse Practitioner Family
DX: R10.9 Unspecified abdominal pain (principal); R10.32 Left lower quadrant pain
CPT/HCPCS: 74177; 82565; J3490

== ENCOUNTER 2024-12-31 15:07 | Outpatient (REF) | payer MEDICARE, BC, SELFPAY ==
[2025-01-01 11:27] LABS: Campylobacter PCR Negative (Negative); Salmonella PCR Negative (Negative); Shiga Toxin PCR Negative (Negative); Shigella/Enteroinvasive Ecoli Negative (Negative)
== END 2024-12-31 15:08 | disposition home or self-care (01) ==
LOC: LBN 15:07
PROVIDERS: PCP Nurse Practitioner Family; Visit Provider Nurse Practitioner Family
DX: R19.7 Diarrhea, unspecified (principal)
CPT/HCPCS: 87505

== ENCOUNTER 2025-01-18 01:47 | Outpatient (CLI) | payer MEDICARE, BC, SELFPAY ==
--- NOTE | 2025-01-18 07:10 | DI.US_ITS ---
Exam(s) US RENAL EXAM: US RENAL CLINICAL HISTORY: discomfort,f/u ct,bladder distension,n32.89 TECHNIQUE: Ultrasound of both kidneys performed using standard protocol. COMPARISON: CT CT ABDOMEN PELVIS W from 12/28/2024 FINDINGS: RIGHT KIDNEY: Measures 10.9 cm in length. No cysts evident. Normal cortical thickness and corticomedullary differen tiation .No solid masses No intrarenal calculi nor hydronephrosis. LEFT KIDNEY: Measures 11.3 cm in length. No cysts evident. Normal cortical thickness and corticomedullary differe ntiaion. No solids masses. No intrarenal calculi nor hydonephrosis. URINARY BLADDER: Urinary bladder is again noted be significantly distended Prevoid volume is 1783 cc Postvoid volume is 682 cc Again noted is the prominent left-sided Hutch diverticulum measuring 9.7 x 4.1 x 9.7 cm, as evident o n the recent CT scan No evidence of bladder wall mass. Ureterovesical jets: Both not identified. PROSTATE GLAND: Minimally prominent size IMPRESSION: 1. No significant ultrasound findings in the kidneys. No hydronephrosis. 2. Grossly distended urinary bladder with large left-sided Hutch diverticulum having measurements as above. Also large postvoid residual amount of urine in the bladder (682 cc) 3. No evidence of bladder wall mass. The fact that the ureterovesical jets were not identified is m ost probably related to the bladder being distended. DATA REPOSITORY:
== END 2025-01-18 02:07 ==
LOC: DI 01:47
PROVIDERS: PCP Nurse Practitioner Family; Visit Provider Nurse Practitioner Family
DX: N32.89 Other specified disorders of bladder (principal)
CPT/HCPCS: 76770

== ENCOUNTER → 2025-01-25 13:49 | Outpatient (BNVA) | payer MEDICARE, BC, SELFPAY | PROVIDERS: PCP Nurse Practitioner Family; Referring Provider Nurse Practitioner Family; Visit Provider Nurse Practitioner Gerontology | DX: N32.89 Other specified disorders of bladder (principal) | CPT/HCPCS: 99215 ==

== ENCOUNTER 2025-06-17 16:52 | Outpatient (CLI) | payer MEDICARE, BC, SELFPAY ==
--- NOTE | 2025-06-17 16:45 | RT.EKG_ITS ---
APPROVED REPORT Exam: Resting ECG Reason for Exam: chest pain Patient Location: O HR:59 bpm ECG Measurements Heart Rate 59 AXIS AL 216 P -35 QRSd 97 QRS 8 QT 397 T 206 QTc 394 Conclusion Sinus rhythm...normal P axis, V-rate 50- 99 Borderline prolonged AL interval...AL >212, V-rate 50- 90 Inferior infarct, old...Q >35mS, II III aVF
== END 2025-06-17 16:53 | disposition home or self-care (01) ==
LOC: DI.CM 16:52
PROVIDERS: PCP Nurse Practitioner Family; Visit Provider Nurse Practitioner Family
DX: R07.9 Chest pain, unspecified (principal); I51.7 Cardiomegaly
CPT/HCPCS: 93010

== ENCOUNTER 2025-06-17 17:24 | Emergency (ER) | payer MEDICARE, BC, SELFPAY ==
--- NOTE | 2025-06-17 17:15 | RT.EKG_ITS ---
APPROVED REPORT Exam: Resting ECG Reason for Exam: bradycardia Patient Location: E HR:60 bpm ECG Measurements Heart Rate 60 AXIS VT 232 P -18 QRSd 97 QRS -11 QT 441 T 64 QTc 440 Conclusion Sinus rhythm...normal P axis, V-rate 60- 99 Prolonged VT interval...VT >220, V-rate 50- 90 Probable left atrial enlargement...P >50mS, <-0.10mV V1 Inferior infarct, old...Q >35mS, II III aVF No acute ST changes There are no significant changes compared to prior EKG performed on 06/17/2025 at 16:48.
[2025-06-17 17:25] VITALS: BP 171/84; PULSE 70; RESP 18; TEMP 36.1; O2SAT 94
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
[2025-06-17 17:45] VITALS: BP 141/80; PULSE 60; RESP 16; O2SAT 98
[2025-06-17 17:46] VITALS: RESP 16
[2025-06-17 18:00] VITALS: BP 152/63; PULSE 59; RESP 16; O2SAT 98
[2025-06-17 18:30] VITALS: BP 142/63; PULSE 56; O2SAT 99
[2025-06-17 18:32] LABS: D-Dimer 503 ng/mlFEU (<500)
[2025-06-17 18:39] LABS: ALT 38 U/L (16-63); AST 32 U/L (15-37); Albumin 3.8 g/dL (3.4-5.0); Alkaline Phosphatase 102 U/L (46-116); Anion Gap 6.8 mmol/L (3-11); BUN 14 mg/dL (7-18); Bilirubin, Total 0.5 mg/dL (0.2-1.0); CO2 29.2 mmol/L (21.0-32.0); Calcium 8.7 mg/dL (8.5-10.1); Chloride 101 mmol/L (98-107); Glucose 87 mg/dL (74-106); Lipase 29 U/L (<78); Magnesium 2.1 mg/dL (1.8-2.4); Potassium 4.3 mmol/L (3.5-5.1); Sodium 137 mmol/L (136-145); Total Protein 7.1 g/dL (6.4-8.2); Troponin I 7 ng/L (<or=76)
--- NOTE | 2025-06-17 19:12 | DI.RAD_ITS ---
Exam(s) XR CHEST 2V PA LATERAL EXAM: XR CHEST 2V PA LATERAL CLINICAL HISTORY: chest pain TECHNIQUE: 2D digital imaging was performed of the chest. Two images were obtained. PA and lateral views were obtained. COMPARISON: CR,XR XR PORTABLE CHEST AP from 11/17/2023 CR XR CHEST 2V PA LATERAL from 09/14/2024 FINDINGS: MEDIASTINUM: Normal. HEART: Normal. PULMONARY VASCULATURE: Normal. LUNGS: Clear. PLEURAL SPACE: No pleural effusion or pneumothorax. BONE:Within normal limits for the patient's age. OTHER FINDINGS:Normal. IMPRESSION: 1. No acute pulmonary findings. 2. The preliminary [facility] report was reviewed. DATA REPOSITORY: RADIATION DOSE DELIVERED:
[2025-06-17 19:37] LABS: Troponin I 9 ng/L (<or=76)
--- NOTE | 2025-06-17 20:19 | DI.[facility]_ITS ---
PROCEDURE INFORMATION: Exam: XR Chest Exam date and time: 06/17/2025 7:14 PM Age: 75 years old Clinical indication: Other: Chest pain TECHNIQUE: Imaging protocol: Radiologic exam of the chest. Views: 2 views. COMPARISON: CR XR CHEST 2V PA LATERAL 09/14/2024 12:53 PM FINDINGS: Lungs: Unremarkable. No consolidation. Pleural spaces: Unremarkable. No pleural effusion. No pneumothorax. Heart/Mediastinum: Unremarkable. No cardiomegaly. Bones/joints: Unremarkable. IMPRESSION: No acute findings. Dictated and Authenticated by: Jarocho Cameron MD. Orderin Sonia Negrete MD
== END 2025-06-17 20:32 | disposition home or self-care (01) ==
PROVIDERS: Emergency Provider Physician Assistant; PCP Nurse Practitioner Family
DX: R07.9 Chest pain, unspecified (principal); I10 Essential (primary) hypertension; Z86.79 Personal history of other diseases of the circulatory system
CPT/HCPCS: 99284 ×2; 36415; 80053; 83690; 93005; 71046; 83735; 83880; 84484; 85379; 93010

== ENCOUNTER → 2025-07-25 03:42 | Outpatient (CLI) | payer MEDICARE, BC, SELFPAY ==
--- NOTE | 2025-07-25 06:15 | DI.US_ITS ---
Exam(s) US RENAL EXAM: US RENAL CLINICAL HISTORY: Monitoring for hydro,bladder distension,N32.89 TECHNIQUE: Ultrasound of both kidneys performed using standard protocol. COMPARISON: US US RENAL from 01/18/2025 FINDINGS: RIGHT KIDNEY: Measures 10.3 cm in length. No cysts evident. Normal cortical thickness and corticomedullary differentiation .No solid masses No intrarenal calculi nor hydronephrosis. LEFT KIDNEY: Measures 10.2 cm in length. No cysts evident. Normal cortical thickness and corticomedullary differentiaion. No solids masses. No intrarenal calculi nor hydonephrosis. URINARY BLADDER: Prevoid volume is 1575 cc Postvoid volume is 836 cc Prostate gland is enlarged, measuring 5.4 cm wide by 2.9 x 2.8 cm for volume 22.4cc No evidence of bladder mass. No calculi seen in the bladder lumen. No intraluminal clots. 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 Again noted is a significantly distended urinary bladder with a large left- sided Hutch diverticulum again noted, similar to previous. Also again noted is a large postvoid residual mount of urine in the bladder (836 cc). There is no obvious bladder mass evident and both ureterovesical jets were identified on today's study. 2. Prostate gland is enlarged with measurements as above. 3. Both kidneys appear unremarkable with no evidence of hydronephrosis. DATA REPOSITORY:
== END ==
LOC: DI 03:43
PROVIDERS: PCP Nurse Practitioner Family; Visit Provider Nurse Practitioner Gerontology
DX: N32.89 Other specified disorders of bladder (principal); N40.1 Benign prostatic hyperplasia with lower urinary tract symptoms; R93.89 Abnormal findings on diagnostic imaging of other specified body structures
CPT/HCPCS: 76770

== ENCOUNTER 2025-07-25 04:18 | Outpatient (CLI) | payer MEDICARE, BC, SELFPAY ==
[2025-07-25 08:16] LABS: BUN 15 mg/dL (9-23)
== END 2025-07-25 04:19 | disposition home or self-care (01) ==
LOC: LBO 04:19
PROVIDERS: PCP Nurse Practitioner Family; Visit Provider Nurse Practitioner Gerontology
DX: N32.89 Other specified disorders of bladder (principal)
CPT/HCPCS: 36415; 76770; 84520; 82565

== ENCOUNTER → 2025-08-01 08:05 | Outpatient (BNVA) | payer MEDICARE, BC, SELFPAY | PROVIDERS: PCP Nurse Practitioner Family; Referring Provider Nurse Practitioner Family; Visit Provider Nurse Practitioner Gerontology | DX: N32.89 Other specified disorders of bladder (principal) | CPT/HCPCS: 99213 ==